=== PATIENT | female | born 1960 | race Caucasian/White ===

== ENCOUNTER 2017-02-22 15:37 | Inpatient (IN) | payer OTHER, MEDICARE ==
[~2017-02-22] VITALS: Ht 149.9 cm; Wt 50.8 kg
--- NOTE | 2017-02-22 15:44 | NUR ---
KATHARINE FROM HOME WHERE SHE LIVES WITH FAMILY FOR C/O MECHANICAL FALL WHILE AMBULATING IN HOUSE, FALLING ONTO CARPET. EMS DENIES LOC. PER EMS FAMILY REPORTS PT IS NORMALLY A&Ox4, BUT WAS REPEATING QUESTIONS WHEN THEY ARRIVED AND HAD CONSTRICTED PUPILS. GLUCOSE IN ROUTE: 320
--- NOTE | 2017-02-22 15:44 | NUR ---
PER EMS PER FAMILY, PT HAD A BAG OF NEIGHBORS MEDICATIONS AND THEY REPORT SHE MIGHT HAVE ACCIDENTLY TOOK SOME OF THEM. PT AWAKE AND ANSWERING QUESTIONS AT THIS TIME, NOT ORIENTED TO YEAR, IS A&OX3. SKIN WARM AND DRY. PUPILS BRISK AND REACTIVE.
--- NOTE | 2017-02-22 15:57 | NUR ---
FAMILY AT BEDSIDE AT THIS TIME. THEY REPORT PT HAD NEIGHBORS MEDICATION, RABEPRAZOLE 20MG IN HER MEDICATION BAG AND ARE UNSURE IF SHE TOOK ANY. THEY ALSO REPORT PT IS ACTING "SLOWER" THAN HER NORMAL. PT WAKES UP AND ANSWERS QUESTIONS, BUT IS NOT ORIENTED TO TIME. FAMILY UNSURE WHEN THIS CHANGE HAPPENED. PLANNING DIVISION SUPERINTENDENT [facility], EKG COMPLETED, PT HOOKED UP TO MONITOR IN ROOM. WILL CONT TO MONITOR WHILE AWAITING MD OSEI.
--- NOTE | 2017-02-22 16:16 | ED MVC/FALL/TRAUMA COMPLAINT ---
History of Present Illness General Chief Complaint: Fall Stated Complaint: BIBA FOR FALL, ALTERED MENTAL STATUS Source: family, old records, EMS Exam Limitations: unable to give history, not alert/orientated Allergies Coded Allergies: NO KNOWN ALLERGIES (04/07/12) Reconcile Medications Alprazolam 0.25 MG TABLET 1 TAB PO TIDPRN PRN ANXIETY (Reported) Atorvastatin Calcium 10 MG TABLET 1 TAB PO DAILY CHOLESTEROL (Reported) Baclofen 10 MG TABLET 1 TAB PO TID PRN CRAMPING (Reported) Citalopram Hydrobromide (Citalopram HBr) 20 MG TABLET 1.5 TAB PO DAILY MENTAL HEALTH (Reported) Diphenoxylate HCl/Atropine (Lomotil 2.5-0.025 MG Tablet) 2.5 MG-0.025 MG TABLET 1 TAB PO QHS INCONTINENCE (Reported) Gabapentin 400 MG CAPSULE 1 CAP PO 6XDAILY UNKNOWN (Reported) Insulin Aspart, Recombinant (Novolog Flexpen) (Unknown Strength) INSULN.PEN ( Unknown Dose) SC AD DM (Reported) Linagliptin (Tradjenta) 5 MG TABLET 1 TAB PO DAILY DM (Reported) Lisinopril (Unknown Strength) TABLET (Unknown Dose) PO DAILY BP (Reported) Oxybutynin Chloride 5 MG TABLET 1 TAB PO BID BLADDER (Reported) Tramadol HCl 50 MG TABLET 1 TAB PO BID PAIN (Reported) Triage Note: BIBA FROM HOME WHERE SHE LIVES WITH FAMILY FOR C/O MECHANICAL FALL WHILE AMBULATING IN HOUSE, FALLING ONTO CARPET. EMS DENIES LOC. PER EMS FAMILY REPORTS PT IS NORMALLY A&Ox4, BUT WAS REPEATING QUESTIONS WHEN THEY ARRIVED AND HAD CONSTRICTED PUPILS. GLUCOSE IN ROUTE: 320 Triage Nurses Notes Reviewed? yes Onset: Abrupt Duration: hour(s): (2-3), constant, continues in ED, getting worse Timing: single episode today Severity: mild, moderate Injuries/Fall Location: no injury Method of Injury: unknown Loss of Consciousness: unsure No Modifying Factors: none Associated Symptoms: confusion, slurred speech, trouble walking LMP (ages 10-50): post menopausal : No Patient currently breastfeeds: No HPI: 56-year-old female with past medical history of multiple sclerosis and diabetes brought in by a ambulance for evaluation of altered mental status. Patient's mother reports that last night she was alert and oriented 4 and at her baseline. She went over to a friend's house for the night and her mom saw her again at 2:30 this afternoon. At that point she was very lethargic she was confused and unsure where she was. MoM which she was repeatedly asking the same questions and was having difficulty walking. While mom was helping her walk into the house she did trip and fall. There is no head injury or loss of consciousness. Mom reports she has never seen the patient like this before. Patient currently is only responsive to physical stimuli and shouting. Patient was found to have medication that did not belong to her that is a proton pump inhibitor. Patient has a history of drug and alcohol abuse. (SHIVA MALONE PA-C) Vital Signs & Intake/Output Vital Signs & Intake/Output Vital Signs Date Time Temp Pulse Resp B/P B/P Pulse O2 O2 Flow FiO2 Mean Ox Delivery Rate 02/22 2309 Room Air 02/22 2232 98.0 77 18 120/70 94 Room Air 02/22 2137 97.4 74 15 152/83 97 Room Air 02/22 2044 74 15 150/72 97 Room Air 02/22 1915 72 16 105/57 98 Room Air 02/22 1827 97.0 80 20 109/65 94 Room Air 02/22 1803 97.0 86 133/78 02/22 1722 97.0 74 20 117/79 96 Room Air 02/22 1607 116/70 02/22 1551 96.2 84 14 118/74 94 Room Air ED Intake and Output 02/23 0000 02/22 1200 Intake Total Output Total Balance Patient 112 lb Weight Weight Reported by Patient Measurement Method Past History Travel History Traveled to [place] past 21 day No Medical History Any Pertinent Medical History? see below for history Neurological: multiple sclerosis Endocrine: diabetes Surgical History Surgical History: none Psychosocial History What is your primary language Portuguese Tobacco Use: Never used ETOH Use: denies use Illicit Drug Use: denies illicit drug use Family History Hx Contributory? Yes (SHIVA MALONE PA-C) Review of Systems Review of Systems Constitutional: Reports: no symptoms. Eyes: Reports: no symptoms. Ears, Nose, Throat, Mouth: Reports: no symptoms. Respiratory: Reports: no symptoms. Cardiovascular: Reports: no symptoms. Gastrointestinal/Abdominal: Reports: no symptoms. Genitourinary: Reports: no symptoms. Musculoskeletal: Reports: no symptoms. Skin: Reports: no symptoms. Neurological/Psychological: Reports: see HPI, cognitive dysfunction, confusion. All Other Systems: Reviewed and Negative (KIRA JOYNER,SHIVA) Physical Exam Physical Exam General Appearance: well developed/nourished, lethargic, obese Head: atraumatic, normal appearance Eyes: Bilateral: normal appearance, PERRL, EOMI, normal inspection. Ears, Nose, Throat, Mouth: hearing grossly normal, moist mucous membrane, Tympanic normal Neck: normal inspection, supple, full range of motion, normal alignment Respiratory: normal breath sounds, chest non-tender, no respiratory distress, lungs clear Cardiovascular: regular rate/rhythm, normal peripheral pulses Peripheral Pulses: 2+ dorsalis pedis (R), 2+ dorsalis pedis (L) Gastrointestinal: normal bowel sounds, soft, non-tender, no organomegaly Back: normal inspection Extremities: normal range of motion Neurologic/Psych: no motor/sensory deficits Skin: intact, normal color, warm/dry Comments: Patient is responsive to very loud verbal stimuli and painful stimuli only. She is very lethargic. No signs of respiratory distress vital signs are stable. Core Measures ACS in differential dx? Yes Severe Sepsis Present: No Septic Shock Present: No (KIRA JOYNER,SHIVA) Progress Differential Diagnosis: dka, hhs, arrythmia, electrolyte abnormailty, cva, acs, drug overdose Initial ED EKG: NSR, non-specific intraventricular condunction delay, extensive q-waves Prior EKG: unchanged (q waves) (KIRA JOYNER,SHIVA) Plan of Care: Orders Procedure Date/time Status Nothing by Mouth 02/23 B Active TROPONIN LEVEL 02/23 06 Active MAGNESIUM 02/23 06 Active BASIC ELECTROLYTES PLUS BUN&CR 02/23 06 Active EKG 02/23 06 Active Regular Diet 02/22 B Complete Teach/Educate 02/23 2308 Active Pain Treatment and Response 02/23 2308 Active Nutritional Intake, Monitor 02/23 2308 Active Isolation 02/23 2308 Active Patient Care Conference 02/23 2308 Active TRC EVALUATION (GEN) 02/22 2149 Active Pathway - chart 02/22 2149 Active House Staff 02/22 2149 Active TOTAL TRIODOTHYROXINE 02/23 2136 Complete OXYGEN SETUP (GEN) 02/22 2057 Active Saline Lock 02/22 2057 Active Admit to inpatient 02/22 2057 Active Patient Data 02/22 2057 Active Vital Signs 02/22 2057 Active Activity/Ambulation 02/22 2057 Active Code Status 02/22 2057 Active Add-on Test (ER Only) 02/23 2016 Active Add-on Test (ER Only) 02/22 1950 Active Add-on Test (ER Only) 02/22 1949 Active Add-on Test (ER Only) 02/22 194 Active AMMONIA 02/22 194 Complete FingerStick- Glucose 02/22 1723 Active TOTAL TRIODOTHYROXINE 02/22 1704 Complete PROLACTIN 02/22 1704 Complete PHOSPHORUS 02/22 1704 Complete SERUM OSMOLALITY 02/22 1704 Complete MAGNESIUM 02/22 1704 Complete FREE T4 02/22 1704 Complete ACETONE 02/22 1704 Complete Add-on Test (ER Only) 02/22 1644 Active Telemetry/[place] Management Professor 02/22 1632 Active URINE DRUG SCREEN FOR ER ONLY 02/22 1632 Complete URINALYSIS 02/22 1632 Complete TSH REFLEX 02/22 1632 Complete TROPONIN LEVEL 02/22 1632 Complete ETHANOL 02/22 1632 Complete COMPREHENSIVE METABOLIC PANEL 02/22 1632 Complete CBC WITHOUT DIFFERENTIAL 02/22 1632 Complete EKG 02/22 1551 Active Intake & Output 02/22 1546 Active VTE Mechanical Prophylaxis 02/22 UNK Active Precautions 02/22 UNK Active NIH Stroke Scale 02/22 UNK Active PHYSICIAN CONSULT 02/22 UNK Active Current Medications Sig/Hilda Start time Last Medication Dose Stop Time Status Admin Enoxaparin Sodium 40 MG DAILY 02/23 1000 AC (Lovenox) Insulin Human Regular 0 Q6 02/22 2359 AC 02/23 (NovoLIN R) 0009 Sodium Chloride 1,000 ML .[id number] 02/22 2200 AC 02/23 (Normal Saline 0.9%) 0104 Laboratory Tests 02/22/17 2136: Total T3 1.10 02/22/17 2017: Ammonia < 9 L 02/22/17 1734: Urine Opiates Screen < 100.00, Methadone Screen 72, Barbiturate Screen < 60, Ur Phencyclidine Scrn < 6.00, Amphetamines Screen < 100, U Benzodiazepines Scrn < 85, Urine Cocaine Screen > 1000 H, Urine Cannabis Screen 20.50, Urine Color YEL , Urine Clarity CLEAR, Urine pH 6.0, Ur Specific [place] 1.015, Urine Protein NEG, Urine Ketones NEG, Urine Nitrite NEG, Urine Bilirubin NEG, Urine Urobilinogen 0.2, Ur Leukocyte Esterase NEG, Ur Microscopic EXAM NOT REQUIRED, Urine Hemoglobin NEG, Urine Glucose >=1000 H 02/22/17 1704: Anion Gap 11, Estimated GFR > 60, BUN/Creatinine Ratio 38.8 H, Glucose 337 H, Serum Osmolality 294, Calcium 9.6, Phosphorus 5.1 H, Magnesium 1.4 L, Total Bilirubin 0.7, AST 21, ALT 35, Alkaline Phosphatase 129 H, Troponin I 0.02, Total Protein 6.4, Albumin 3.6, Globulin 2.8, Albumin/Globulin Ratio 1.3, Free T4 1.86 H, TSH &T3 &Free T4 Intrp 2.850, Prolactin 19.2 H, CBC w Diff NO MAN DIFF REQ, RBC 4.55, MCV 81.8, MCH 26.8 L, RDW 14.8 H, MPV 7.8, Gran % 75.2, Lymphocytes % 16.0 L, Monocytes % 5.7, Eosinophils % 2.7, Basophils % 0.4, Absolute Granulocytes 5.6, Absolute Lymphocytes 1.2, Absolute Monocytes 0.4, Absolute Eosinophils 0.2, Absolute Basophils 0, PUBS MCHC 32.7 L, Serum Alcohol < 10.0, Acetone Level NEGATIVE 02/22/17 1644: TSH &T3 &Free T4 Intrp Cancelled 7:45 PM: Patient reevaluated and still is only responsive to painful stimuli. Vitals are stable no respiratory distress. CT head does not show any acute findings. Blood sugar is elevated and there is a large amount of cocaine in her urine but otherwise workup so far has been within normal limits. Discussed case with Dr. Liu and patient will need to be admitted for further evaluation. Spoke with hospitalist at 7:47 PM. Additional labs will be added on to rule out DKA or HHS. 2 L of normal saline ordered. Will follow up on labs to determine placement either general med or ICU. 9:10 PM DKA and HHS have been ruled out. She'll be admitted to general med. Spoke with hospitalist and MOD. (KIRA JOYNER,SHIVA) Departure Departure Disposition: STILL A PATIENT Condition: Stable Clinical Impression Primary Impression: Altered mental status, unspecified Qualifiers: Altered mental status type: unspecified Qualified Code: R41.82 - Altered mental status, unspecified Secondary Impressions: Cocaine use, Hyperglycemia Referrals: OMI GILL APRN (PCP/Family) Departure Forms: Customer Survey General Discharge Information Admission Note Spoke With: RADAMES JUAREZ MD Documentation of Exam: Patient requires admission to general for further evaluation of altered mental status. She requireS MRI of the brain, physical therapy referral, neurology referral, serial labs, neuro checks, endocrine referral, hyperglycemia treatment , crisis/psych consult. (KIRA JOYNER,SHIVA) PA/SPRING SETTER Co-Sign Statement Statement: ED Attending supervision documentation- [X] I saw and evaluated the patient. I have also reviewed all the pertinent lab results and diagnostic results. I agree with the findings and the plan of care as documented in the PA's/SPRING SETTER's documentation. During my evaluation the patient open her eyes briefly and attempted to speak but her speech was slurred and incomprehensible. There is no focal neurologic deficits appreciable on physical examination but the exam is extremely limited due to the patient's lack of cooperation. Pupils are midpoint and reactive. The patient is not sweaty or flushed. I see no toxidrome at this point. There is likewise no indication of head trauma currently. The cause of this patient's altered mental status is somewhat unclear. Fortunately she is hemodynamically stable. [] I have reviewed the ED Record and agree with the PA's/SPRING SETTER's documentation. [] Additions or exceptions (if any) to the PAs/SPRING SETTER's note and plan are summarized below: [] (JABARI FREDERICK,ISREAL Ann)
--- NOTE | 2017-02-22 16:45 | NUR ---
PT TO CT AT THIS TIME.
--- NOTE | 2017-02-22 16:53 | NUR ---
PT BACK FROM CT AT THIS TIME. HOOKED BACK UP TO MONITORS IN ROOM.
[2017-02-22 17:15] LABS: ABSOLUTE BASOPHIL COUNT 0 /CUMM (0.0-0.2); ABSOLUTE EOSINOPHIL COUNT 0.2 /CUMM (0.0-0.7); ABSOLUTE GRANULOCYTE CT 5.6 /CUMM (1.4-6.5); ABSOLUTE LYMPH COUNT 1.2 /CUMM (1.2-3.4); ABSOLUTE MONOCYTE COUNT 0.4 /CUMM (0.10-0.60); BASOPHIL % 0.4 % (0.0-2.0); EOSINOPHIL % 2.7 % (0-5); GRANULOCYTE % 75.2 % (42.2-75.2); HEMATOCRIT 37.2 % (37-47); MEAN CORPUSCULAR HGB 26.8 PG (27.0-31.0); MEAN CORPUSCULAR HGB CONC 32.7 G/DL (33.0-37.0); MEAN CORPUSCULAR VOLUME 81.8 FL (81.0-99.0); MEAN PLATELET VOLUME 7.8 FL (7.4-10.4); PLATELET COUNT 337 /CUMM (130-400); RBC DISTRIBUTION WIDTH 14.8 % (11.5-14.5); RED BLOOD CELL CT 4.55 /CUMM (4.20-5.40); WHITE BLOOD CELL COUNT 7.5 /CUMM (4.8-10.8)
--- NOTE | 2017-02-22 17:21 | CT SCAN REPORT ---
EXAMINATION: CT HEAD WITHOUT CONTRAST CLINICAL INFORMATION: Altered mental status. COMPARISON: MRI brain 08/11/2013. Noncontrast head CT 05/14/2013. TECHNIQUE: Contiguous axial imaging was performed from the skull base to vertex without intravenous administration of contrast. DLP: 620 mGy-cm FINDINGS: There is no acute intracranial hemorrhage, mass or mass effect or abnormal extra-axial fluid collections. The ventricles are normal in size, without hydrocephalus. There are no focal areas of hypoattenuation in a vascular distribution to suggest acute transcortical ischemia. Areas of hypoattenuation within the periventricular and deep cortical white matter are nonspecific but could reflect sequela of mild chronic microvascular ischemia. Chronic appearing lacunar infarcts are present within the lateral basal ganglia as well as within the barnes radiata. No acute calvarial abnormality. The mastoid air cells and visualized portions of the paranasal sinuses are well-aerated. IMPRESSION: 1. No acute intracranial abnormality. However, please note that MRI of the brain is more sensitive in evaluating for acute ischemia. If there is a clinical concern for acute stroke, consider correlation with MRI of the brain. 2. Chronic appearing lacunar infarcts within the bilateral basal ganglia as well as within the barnes radiata. Subtle areas of hypoattenuation within the periventricular and deep cortical white matter are nonspecific but could reflect mild chronic microvascular ischemia.
--- NOTE | 2017-02-22 17:22 | RADIOLOGY REPORT ---
EXAMINATION: XR PORTABLE CHEST CLINICAL INFORMATION: Altered mental status. Shortness of breath. COMPARISON: None. TECHNIQUE: Portable frontal view of the chest was obtained. FINDINGS: The lungs are mildly hypoinflated, without focal airspace consolidation. No pleural effusions or pneumothoraces are identified. Cardiomediastinal contours are within normal limits. Soft tissues are unremarkable. No acute osseous abnormality is identified. IMPRESSION: No acute pulmonary abnormality.
--- NOTE | 2017-02-22 17:33 | NUR ---
CATHED FOR URINE USING STERILE TECHNIQUE AND URINE SENT TO LAB. PT REMAINS ON MONITOR, AND DROWSY. AWAKES TO VERBAL STIMULI, BUT FALLS BACK ASLEEP WHILE ANSWERING QUESTIONS. FAMILY REMAINS AT BEDSIDE. WILL CONT TO MONITOR.
[2017-02-22] MEDS ORDERED: ATORVASTATIN CA10 M1 PO (17:41)
[2017-02-22] MEDS ORDERED: GABAPENTIN400 M2 PO (17:41)
[2017-02-22] MEDS ORDERED: OXYBUTYNIN CHLOR5 M2 PO (17:42)
[2017-02-22] MEDS ORDERED: TRADJENTA5 M1 PO (17:43)
[2017-02-22] MEDS ORDERED: LISINOPRIL10 M1 PO (17:43)
[2017-02-22] MEDS ORDERED: ALPRAZOLAM0.25 M1 PO (17:44)
[2017-02-22] MEDS ORDERED: CITALOPRAM HBR20 MG PO (17:44)
[2017-02-22] MEDS ORDERED: BACLOFEN10 M1 PO (17:44)
[2017-02-22] MEDS ORDERED: LOMOTIL 2.5-0.1 EACH PO (17:45)
[2017-02-22] MEDS ORDERED: NOVOLOG FL100 UNIT/1 SC (17:45)
[2017-02-22] MEDS ORDERED: TRAMADOL HCL50 M1 PO (17:45)
--- NOTE | 2017-02-22 18:36 | NUR ---
PT SLEEPING AT THIS TIME, ARROUSES TO VERBAL STIMULI. FAMILY REMAINS AT BEDSIDE, PT REMAINS ON MONITORS IN ROOM. RESP EVEN AND NONLABORED, EQUAL RISE AND FALL OF THE CHEST. VSS. WILL CONT TO MONITOR.
--- NOTE | 2017-02-22 19:18 | NUR ---
PT RESTING IN BED AT THIS TIME, AWAKES TO VERBAL STIMULI. PT REMAINS ON MONITOR WILL CONT TO MONITOR. SKIN WARM AND DRY. AIRWAY IN TACT. VSS. WILL CONT TO MONITOR.
--- NOTE | 2017-02-22 20:22 | NUR ---
IV EST #20 IN [facility]. AMMONIA OBTAINED AND SENT TO LAB. NS INFUSING PER EMAR. HOUSE STAFF AT BEDSIDE FOR PT EVALUATION.
--- NOTE | 2017-02-22 20:46 | NUR ---
PT SLEEPING IN BED AT THIS TIME, RESPIRATIONS EVEN AND NONLABOERD. IS SNORING OCCASIONALLY, 02 SATS MAINTAINING. AWAKES TO VERBAL STIMULI. REMAINS ON MONITORS IN ROOM. IVF RUNNING AT THIS TIME.
--- NOTE | 2017-02-22 21:17 | History & Physical ---
[place] [place]: General Information and [facility] MD Statement: I have seen and personally examined YANELY,DECEMBER and documented this H&P. The patient is a 56 year old F who presented with a patient stated chief complaint of altered mental status. Source of Information: family, old records Exam Limitations: unable to give history, not alert/orientated, clinical condition History of Present Illness: Ms. 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 Patient is very lethargic and nonverbal and unable to provide any history when examined in the ED. Therefore the history is obtained over the phone from patient's mother who she lives with. According to her mother , patient was in her usual state of her health when she left the house to go to her friend's house on the night prior to her current presentation. When she came back home at 2:30 PM the following day, she was incoherent, not able to answer questions and "staring into space". She was unsteady on her feet and could barely walk. She had a fall but there was no head trauma or loss of consciousness. Her mother reports that the friends that she was hanging out with that night have the reputation of being crack cocaine users. She states that her daughter is an alcoholic and smokes marijuana but is unaware of other illicit drug use. She notes that her daughter has never had a similar episode before, but recalls that 3 weeks ago, patient came back home looking like she was "dying" with a "drawn" face and "wide stare" after hanging out with her friends. Patient is currently on disability and spends most of her days in bed as she is depressed. Patient was diagnosed with multiple sclerosis in August 2013. She had been following up with neurologist Dr. Sergio Avila but it is unclear if she still follows up with him. Her mother reports that patient had not been following up with any doctors and had stopped taking her medications for a year up until three weeks ago when she saw her PCP again with her mom's insistence. Allergies/Medications Allergies: Coded Allergies: NO KNOWN ALLERGIES (04/07/12) Home Med list Alprazolam 0.25 MG TABLET 1 TAB PO TIDPRN PRN ANXIETY (Reported) Atorvastatin Calcium 10 MG TABLET 1 TAB PO DAILY CHOLESTEROL (Reported) Baclofen 10 MG TABLET 1 TAB PO TID PRN CRAMPING (Reported) Citalopram Hydrobromide (Citalopram HBr) 20 MG TABLET 1.5 TAB PO DAILY MENTAL HEALTH (Reported) Diphenoxylate HCl/Atropine (Lomotil 2.5-0.025 MG Tablet) 2.5 MG-0.025 MG TABLET 1 TAB PO QHS INCONTINENCE (Reported) Gabapentin 400 MG CAPSULE 1 CAP PO 6XDAILY UNKNOWN (Reported) Insulin Aspart, Recombinant (Novolog Flexpen) (Unknown Strength) INSULN.PEN ( Unknown Dose) SC AD DM (Reported) Linagliptin (Tradjenta) 5 MG TABLET 1 TAB PO DAILY DM (Reported) Lisinopril (Unknown Strength) TABLET (Unknown Dose) PO DAILY BP (Reported) Oxybutynin Chloride 5 MG TABLET 1 TAB PO BID BLADDER (Reported) Tramadol HCl 50 MG TABLET 1 TAB PO BID PAIN (Reported) Past History Travel History Traveled to [facility] past 21 day No Medical History Neurological: multiple sclerosis, peripheral neuropathy Cardiovascular: hypertension, hyperlipidemia Psychiatric: anxiety, depression Endocrine: diabetes Surgical History Surgical History: none Past Family/Social History Psychosocial History Where do you live? Home Who Do You Live With? parent Services at Home: None Primary Language: Armenian ETOH Use: alcoholic Illicit Drug Use: marijuana Functional Ability ADLs Independent: dressing, eating, toileting, bathing. Ambulation: independent IADLs Independent: shopping, housework, finances, food prep, telephone, transportation , medication admin. Employment History Employment Disability Review of Systems Review of Systems Constitutional: Reports: see HPI (unable to obtain ROS ). Exam & Diagnostic Data Last 24 Hrs of Vital Signs/I&O Vital Signs Date Time Temp Pulse Resp B/P B/P Pulse O2 O2 Flow FiO2 Mean Ox Delivery Rate 02/22 2309 Room Air 02/22 2232 98.0 77 18 120/70 94 Room Air 02/22 2137 97.4 74 15 152/83 97 Room Air 02/22 2044 74 15 150/72 97 Room Air 02/22 1915 72 16 105/57 98 Room Air 02/22 1827 97.0 80 20 109/65 94 Room Air 02/22 1803 97.0 86 133/78 02/22 1722 97.0 74 20 117/79 96 Room Air 02/22 1607 116/70 02/22 1551 96.2 84 14 118/74 94 Room Air Intake & Output 02/23 0800 02/23 0000 02/22 1600 Intake Total 100 Output Total Balance 100 Intake, IV 100 Intake, Oral 0 Patient 50.802 kg 68.039 kg Weight Weight Reported by Patient Estimated Measurement Method Physical Exam General Appearance Lethargic, Nonverbal, Follows Commands Skin No Rashes HEENT Atraumatic, PERRLA, Dry Mucous Membranes Neck Supple Cardiovascular Regular Rate, Normal S1, Normal S2, No Murmurs, Gallops, Rubs Lungs Clear to Auscultation Abdomen Soft, No Tenderness, Positive Bowel Sounds Neurological Strength at 5/5 X4 Ext, Cranial Nerves Grossly Intact Extremities No Clubbing, No Cyanosis, No Edema Last 24 Hrs of Labs/Carlos: Laboratory Tests 02/22/176: Total T3 1.10 02/22/17 2017: Ammonia < 9 L 02/22/17 1734: Urine Opiates Screen < 100.00, Methadone Screen 72, Barbiturate Screen < 60, Ur Phencyclidine Scrn < 6.00, Amphetamines Screen < 100, U Benzodiazepines Scrn < 85, Urine Cocaine Screen > 1000 H, Urine Cannabis Screen 20.50, Urine Color YEL , Urine Clarity CLEAR, Urine pH 6.0, Ur Specific [place] 1.015, Urine Protein NEG, Urine Ketones NEG, Urine Nitrite NEG, Urine Bilirubin NEG, Urine Urobilinogen 0.2, Ur Leukocyte Esterase NEG, Ur Microscopic EXAM NOT REQUIRED, Urine Hemoglobin NEG, Urine Glucose >=1000 H 02/22/17 1704: Anion Gap 11, Estimated GFR > 60, BUN/Creatinine Ratio 38.8 H, Glucose 337 H, Serum Osmolality 294, Calcium 9.6, Phosphorus 5.1 H, Magnesium 1.4 L, Total Bilirubin 0.7, AST 21, ALT 35, Alkaline Phosphatase 129 H, Troponin I 0.02, Total Protein 6.4, Albumin 3.6, Globulin 2.8, Albumin/Globulin Ratio 1.3, Free T4 1.86 H, TSH &T3 &Free T4 Intrp 2.850, Prolactin 19.2 H, CBC w Diff NO MAN DIFF REQ, RBC 4.55, MCV 81.8, MCH 26.8 L, RDW 14.8 H, MPV 7.8, Gran % 75.2, Lymphocytes % 16.0 L, Monocytes % 5.7, Eosinophils % 2.7, Basophils % 0.4, Absolute Granulocytes 5.6, Absolute Lymphocytes 1.2, Absolute Monocytes 0.4, Absolute Eosinophils 0.2, Absolute Basophils 0, PUBS MCHC 32.7 L, Serum Alcohol < 10.0, Acetone Level NEGATIVE 02/22/17 1644: TSH &T3 &Free T4 Intrp Cancelled Diagnostic Data EKG Results Normal sinus rhythm HR 82 T wave inversions QTc [address] HEAD WITHOUT CONTRAST: 1. No acute intracranial abnormality. However, please note that MRI of the brain is more sensitive in evaluating for acute ischemia. If there is a clinical concern for acute stroke, consider correlation with MRI of the brain. 2. Chronic appearing lacunar infarcts within the bilateral basal ganglia as well as within the barnes radiata. Subtle areas of hypoattenuation within the periventricular and deep cortical white matter are nonspecific but could reflect mild chronic microvascular ischemia. Assessment/Plan Assessment: Ms. 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 #Altered mental status: Etiology is toxic encephalopathy secondary to cocaine abuse with urine toxicology positive for cocaine vs. post-ictal state, with mild elevation in prolactin to 19.2. Although patIent has a history of uncontrolled diabetes with elevated blood sugars (344) on admission, labs are not consistent with DKA or HHS given bicarbonate, anion gap and serum osmolality WNL. Although patient has hyponatremia with Na 129, this likely represents pseudohyponatremia secondary to hyperglycemia given normal osmolality. There is no evidence for other causes of acute altered mental status including hepatic encephalopathy given ammonia <9 and sepsis or RN SECURITY infections given patient is afebrile and without leukocytosis. CT Head with no acute infarcts but chronic lacunar infarcts as well as cortical changes consistent with mild chronic microvascular ischemia. * Admit to General Medicine. * Neurology consulted. Appreciate their recs. * EEG ordered to evaluate for seizures. * Aspiration and fall precautions. * Neuro-checks Q6H. * Keep patient NPO including meds. * CIWA protocol to monitor for signs/symptoms of withdrawal. * Monitor respiratory status. * Avoid sedating medications. * Gentle hydration with NS @ 75 cc/hr. * TRC and nebs. #Cocaine abuse: Troponin on admission negative. EKG with T wave inversions but no ST-T wave elevations or depressions. * Repeat EKG and troponin in the morning due to concern for myocardial ischemia in the setting of cocaine use. #Hypomagnesemia: Mg 1.4 on admission. * Administer 1 mg of IV Mg x2. * Repeat Mg in the morning and replete as needed to keep Mg >2. #Insulin-dependent T2DM: Sugars elevated to 344 on initial presentation. On linagliptin and Novolog as outpatient. * Hold oral hypoglycemic agents while inpatient. * Accu-checks Q6H and NPO sliding scale Novolin. * Check HbA1c. Diet: NPO DVT PPx: Lovenox and ALPs CODE: FULL As Ranked By This Provider Problem List: 1. Altered mental status 2. Hypomagnesemia 3. Insulin dependent type 2 diabetes mellitus 4. Cocaine abuse Core Measures/Miscellaneous Acute Coronary Syndrome ACS Diagnosis: No Cerebrovascular Accident CVA/TIA Diagnosis: No Congestive Heart Failure CHF Diagnosis: No VTE (View Protocol) VTE Risk Factors: Acute medical illness, Age > 40 No [facility] VTE prophylaxis d/t: No contraindications No VTE Pharm Prophylaxis d/t: No contraindications VTE Diagnosis: No VTE Type: NONE VTE Confirmed by (Test): NONE Sepsis (View Protocol) Severe Sepsis Present: No Septic Shock Septic Shock Present: No Miscellaneous Documentation Attending [facility] Primary Care Physician: OMI GILL APRN Patient sees these Specialists Neurologist Sergio Avila MD Level of Patient Care: General Medicine KALPANA ADRIAN 02/22/17 2213: Resident Review Statement Resident Statement: examined this patient, discussed with digital marketing intern, agreed with digital marketing intern, reviewed images, amended to note Other Findings: She is a 57 years old lady with past medical history of hypertension hyperlipidemia diabetes mellitus, neuropathy anxiety depression MIs diagnosed in 2012 who was brought in to [facility] after being noted to be almost had and also experiencing a fall. The patient lives with the mother who reports that yesterday she went to visit friends who are known cocaine users and upon returning home she was noted to be incoherent unstable and not fully aware of her surroundings. Mother volunteers that the patient is a regular user of marijuana but cannot confirm use of cocaine or other IV drugs of abuse. She denies witnessing any seizures. On arrival the patient was afebrile 96.2 heart rate of 84 respiration of 14 blood pressure 118/74 and saturating 94% on room air Physical examination: Patient lying on the bed very drowsy waking up and going to sleep almost immediately almost instant snoring. Neurological: Patient understands is in [facility] but refused to answer other questions, pupils are normal size bilaterally and reacting to light, symmetrical face, normal power in bilateral upper and lower limbs not able to do sensory testing as the patient is not responding to detailed questions. Chest: Transmitted breath sounds bilaterally slightly reduced after clearing the throat no crackles or crepitations Heart: RRR, S1-S2 normal no murmurs Abdomen: Normal contour moving with respiration and no palpable mass Labs: H&H 12.2 and 37.2, low sodium 129,, glucose 337, negative acetone, magnesium 1.4 CT head: No acute intracranial abnormalities chronic appearing lacunar infarcts within bilateral basoganglia EKG: Sinus arrhythmia regular normal axis normal SC was changes T-wave inversions nonspecific Assessment and plan 56 years old with history of hypertension hyperlipidemia and diabetes mellitus neuropathy anxiety depression and MIs diagnosed in 2012 presenting after a period of incoherence altered mental status unstable gait with a fall without associated head injury. Patient visited with friends who are drug abusers and on presentation had significant cocaine in urine more than 1000, negative acetone slightly high sugar of 337. This patient altered mental status can be due to cocaine intoxication but we cannot rule out a post ictal face where the patient might have had a seizure. Altered mental status Drug overdose Hypomagnesemia Diabetes mellitus with high sugars Hypertension Admitted the patient to general medicine floor Keep the patient nothing by mouth while altered pending improvement of mental status Hold all oral medications, consider restarting tomorrow with neurological improvement Aspiration precautions, fall precautions Neurochecks every 6 Patient received 2 rounds of magnesium sulfate, review magnesium level a.m. and continue to correct To maintain level above 2 Patient is on nothing by mouth insulin sliding scale Gentle hydration with normal saline 75 mL per hour Given cocaine and risk of inducing NM patient will get repeat troponin and EKG a.m. I am neuro consult possible candidate for EEG to rule out seizures Patient is full code Alps and Lovenox for DVT prophylaxis LARRY FREDERICK, [facility] 02/22/17 4726: Attending MD Review Statement Attending Statement Attending MD Statement: examined this patient, discuss w/resident/PA/PARTS COUNTER ASSOCIATE, agreed w/resident/PA/PARTS COUNTER ASSOCIATE Attending Assessment/Plan: 56 yo F with h/o HTN, HLD, insulin dependent diabetes with neuropathy, multiple sclerosis (diagnosed 2012), anxiety, depression, is brought in by family for evaluation of altered mental status. History was obtained from mother. Patient was last seen normal the evening prior. Overnight, she visited her friends who do drugs (cracked house). She then came back home around 2.30 pm when mother found her to be lethargic, incoherent and wobbly on her feet, falling without head strike. Unclear if she had a seizure or syncopal episode. Patient regularly uses marijuana and drinks alcohol. She has been noncompliant with her medications. Neuro: Dr. Avila. VSS. On our evaluation, patient was arousable to verbal stimuli but very lethargic, confused would fall back asleep, oriented to place but not person or time. Dry mucous membranes, pupils RTL. Chest b/l clear anteriorly, Heart S1S2 regular, Abd soft, NT. Neuro grossly nonfocal exam. Labs: Na 129 (corrected sodium is 135), BUN 31, bicarb normal, glucose 337, S. Osm 294, Mag 1.4, LFT normal, alk phos 129, ammonia <9, trop neg, TSH normal, Free T4 1.86, prolactin 19.2. UA clear with glucose >1000, Utox positive for cocaine and cannabis. Acetone neg. Alcohol <10. CXR neg. CT head: no acute infarcts, chronic lacunar infarcts+. EKG: SR, TWI V5-6, nonspecific ST-T changes. 1. Altered mental status 2/2 drug use. ?Post ictal state, seizure is a possibility. Uncontrolled diabetes, but no evidence of HHS or DKA, hypercarbia, hypoxia. Hypomagnesemia and mild hyponatremic (pseudo 2/2 hyperglycemia), no evidence of liver failure, stroke, head injury, sepsis or RN SECURITY infections. GM admit, neurochecks, CIWA protocol, aspiration/ fall precautions, NPO, IV fluids, replete electrolytes, check HbA1c, avoid sedative meds. Monitor respiratory status, able to maintain airway at this point. Manage diabetes with insulin NPO SS. Neuro consult in AM. Obtain EEG. Serial EKG and troponin to rule out ACS, given recent cocaine abuse. DVT ppx Lovenox. Full code. Patient's mother is aware of hospitalization. Patient's home meds are on hold , until she is fully awake then please resume.
--- NOTE | 2017-02-22 21:28 | NUR ---
Emergency Dept [facility] Admit Note: To be admitted to [facility] by DR JUAREZ with AMS as the diagnosis, to [facility] location. Nursing Instantizer Operator and admitting notified 02/22/17 at 2100 PT WILL GO TO ROOM 216-2
--- NOTE | 2017-02-22 21:28 | Admission Certification ---
Admission Certification Certification Statement - As attending physician, I certify that at the time of - admission, based on clinical presentation, severity of - symptoms, need for further diagnostic testing and - therapeutic interventions, and risk of adverse outcomes - without in-hospital treatment, in my clinical assessment, - this patient requires an acute hospital stay for a minimum - of two nights or longer. I have also considered psychsocial - factors such as support system, advanced age, financial - issues, cognitive issues, and failed out-patient treatments, - past re-admission history, safety of patient, and lack of - compliance as applicable. Specific rationale supporting this admission is: Altered mental status
--- NOTE | 2017-02-22 21:35 | NUR ---
PER LAB, NOT ENOUGH BLOOD TO RUN TESTING AND NEED ADDITIONAL SST. SST DRAWN BY AIRPORT SHUTTLE DRIVER AND SENT TO LAB. MAG SULFATE BAG 1/2 STARTED PER ORDER.
--- NOTE | 2017-02-22 21:53 | NUR ---
REPORT GIVEN TO SAM BOGGS AND ANSWERED ALL QUESTIONS. TRANSPORT ARRANGED.
--- NOTE | 2017-02-22 21:56 | NUR ---
PT TRANSPORTED AT THIS TIME VIA STRETCHER WITH ALL BELONGINGS AND CARE RELINQUISHED.
[2017-02-22 22:32] VITALS: BP 120/70
--- NOTE | 2017-02-22 23:46 | NUR ---
NURSE NOTE: PT ARRIVED TO FLOOR AT 2200, REPORT RECIEVED FROM RAMONA IN ED. PT HAS FLUIDS RUNNING. PT DROWSY AT TIME OF ARRIVAL, BUT ORIENTED TO PERSON, PLACE, AND YEAR. VSS. FALL PX IN PLACE. CALL BARBOZA IN REACH, BED LOW.
--- NOTE | 2017-02-23 06:42 | NUR ---
NURSE NOTE: PT BLOOD SUAGR 72, CNC CUTTING OPERATOR MADE AWARE.
[2017-02-23 06:44] VITALS: BP 113/72
--- NOTE | 2017-02-23 09:53 | PN- Housestaff ---
SHANIQUE FREDERICK,[facility] 02/23/17 0952: Subjective Follow-up For: Altered mental status Subjective: Patient was seen and examined this morning, alert oriented 3. Patient reported pain in the right thigh but denied weakness. Chest pain, abdominal pain, nausea or vomiting. Reported feeling thirsty. Patient passed Bedside swallow eval, diet was started. Signs are stable, patient is afebrile. Review of Systems Constitutional: Reports: see HPI. Objective Last 24 Hrs of Vital Signs/I&O Vital Signs Date Time Temp Pulse Resp B/P B/P Pulse O2 O2 Flow FiO2 Mean Ox Delivery Rate 02/23 1003 Room Air Room Air 02/23 0644 98.1 79 18 113/72 98 Room Air 02/22 2309 Room Air 02/22 2232 98.0 77 18 120/70 94 Room Air 02/22 2137 97.4 74 15 152/83 97 Room Air 02/22 2044 74 15 150/72 97 Room Air 02/22 1915 72 16 105/57 98 Room Air 02/22 1827 97.0 80 20 109/65 94 Room Air 02/22 1803 97.0 86 133/78 02/22 1722 97.0 74 20 117/79 96 Room Air 02/22 1607 116/70 02/22 1551 96.2 84 14 118/74 94 Room Air Intake & Output 02/23 1600 02/23 0800 02/23 0000 Intake Total 600 100 Output Total Balance 600 100 Intake, IV 600 100 Intake, Oral 0 0 Patient 50.802 kg Weight Weight Reported by Patient Measurement Method Physical Exam General Appearance: Alert, Oriented X3, Cooperative, No Acute Distress Skin: No Rashes, No Breakdown, No Significant Lesion HEENT: Atraumatic, PERRLA, EOMI, Mucous Membr. moist/pink Neck: Supple, No JVD Cardiovascular: Regular Rate, Normal S1, Normal S2, No Murmurs Lungs: Clear to Auscultation, Normal Air Movement Abdomen: Normal Bowel Sounds, Soft, No Tenderness, No Hepatospenomegaly, No Masses Neurological: Normal Gait, Normal Speech, Strength at 5/5 X4 Ext, Normal Tone, Sensation Intact, Cranial Nerves 3-12 NL, Reflexes 2+ Extremities: No Clubbing, No Cyanosis, No Edema, Normal Pulses, No Tenderness/ Swelling Assessment/Plan Assessment: Ms. 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 #Altered mental status: Etiology is toxic encephalopathy secondary to cocaine overdose with urine toxicology positive for cocaine vs. post-ictal state, with mild elevation in prolactin to 19.2. Although patent has a history of uncontrolled diabetes with elevated blood sugars (344) on admission, labs are not consistent with DKA or HHS given bicarbonate, anion gap and serum osmolality WNL. Although patient has hyponatremia with Na 129, this likely represents pseudohyponatremia secondary to hypeorglycemia given normal osmolality. There is no evidence for other causes of acute altered mental status including hepatic encephalopathy given ammonia <9 and sepsis or WAREHOUSE COORDINATOR infections given patient is afebrile and without leukocytosis. CT Head with no acute infarcts but chronic lacunar infarcts as well as cortical changes consistent withmild chronic microvascular ischemia. * Neurology consultation was obtained, recommendation for EEG * Neuro-checks Q6H * Patient passed bedside swallow eval, diet was started * Avoid sedating medications * DC IV fluids patient to tolerate fluids well * TRC and nebs #Cocaine overdose: Troponin on admission negative. EKG with T wave inversions but no ST-T wave elevations or depressions. * Troponin negative, EKG no acute changes #Hypomagnesemia: Mg 1.4 on admission. * Administer 1 mg of IV Mg x2. * Magnesium 2 #Insulin-dependent T2DM: Sugars elevated to 344 on initial presentation. On linagliptin and Novolog as outpatient. * NovoLog sliding scale 3 times a day before meals * Accu-checks 3 times a day before meals * Check HbA1c pending Diet:CC2 DVT PPx: Lovenox and ALPs CODE: FULL Problem List: 1. Altered mental status 2. Cocaine use 3. Altered mental status, unspecified Pain Ratin Pain Location: None Pain Goal: Pain 4 or less Pain Plan: Mild pain pathway Tomorrow's Labs & Rationales: ANITHA CARLISLE MD,VAZQUEZ 02/23/17 1320: Attending MD Review Statement Attending Statement Attending MD Statement: examined this patient, discuss w/resident/PA/CLINIC MGR, agreed w/resident/PA/CLINIC MGR, reviewed EMR data (avail), discussed with nursing, discussed with case mgmt, reviewed images, amended to note Attending Assessment/Plan: 56-year-old female with past medical history significant for hypertension, hyperlipidemia, MS, IDDM with neuropathy, anxiety, depression is being admitted to the floor for altered mental status. Per records shows that patient did drugs last night with the friends and her U tox is positive for cocaine. Patient was found lethargic, and coherent and wobbly on her feet and falling without head trauma. Of note it is reported that patient has been noncompliant with her medications. Patient follows up with Dr. Avila. CT and chest xray with no acute findings. Patient this morning was found to be obtunded/sleeping and not responding to voice. She was not found to be in any DKA, hypoxia or hypercarbia, or electrolyte imbalance, not in any liver failure or stroke, head injury or underlying infection. Patient has been admitted for neuro checks, CIWA protocol aspiration/fall precautions. Neurology consult has also been placed. We'll closely monitor her vitals and closely follow up the patient for any change in her physical or mental status.
--- NOTE | 2017-02-23 14:28 | Cons- Neurology ---
General Information and HPI Consulting Request Date of Consult: 02/23/17 Requested By: LARRY FREDERICK,CALALAKSHMI History of Present Illness: 56-year-old female who yesterday had an unusual event She reports that she was at her friend's home watching television; on her return to her home which was close by and she believes that she fell through the doorway. She believes she hit her head. She vaguely recalls the arrival of the police and then the EMS She also believes that she was confused. She was brought to [facility] emergency room where she was again described as being confused. There was no history of convulsive activity. She believes that when she was examined she was thought to awaken. She denies any drug use or alcohol abuse. Medical records indicate that family believes she does abuse alcohol and not her friend has an amputation of cocaine use. At present she feels well and does not complain of headache Allergies/Medications Allergies: Coded Allergies: NO KNOWN ALLERGIES (04/07/12) Home Med List: Alprazolam 0.25 MG TABLET 1 TAB PO TIDPRN PRN ANXIETY (Reported) Atorvastatin Calcium 10 MG TABLET 1 TAB PO DAILY CHOLESTEROL (Reported) Baclofen 10 MG TABLET 1 TAB PO TID PRN CRAMPING (Reported) Citalopram Hydrobromide (Citalopram HBr) 20 MG TABLET 1.5 TAB PO DAILY MENTAL HEALTH (Reported) Diphenoxylate HCl/Atropine (Lomotil 2.5-0.025 MG Tablet) 2.5 MG-0.025 MG TABLET 1 TAB PO QHS INCONTINENCE (Reported) Gabapentin 400 MG CAPSULE 1 CAP PO 6XDAILY UNKNOWN (Reported) Insulin Aspart, Recombinant (Novolog Flexpen) (Unknown Strength) INSULN.PEN ( Unknown Dose) SC AD DM (Reported) Linagliptin (Tradjenta) 5 MG TABLET 1 TAB PO DAILY DM (Reported) Lisinopril (Unknown Strength) TABLET (Unknown Dose) PO DAILY BP (Reported) Oxybutynin Chloride 5 MG TABLET 1 TAB PO BID BLADDER (Reported) Tramadol HCl 50 MG TABLET 1 TAB PO BID PAIN (Reported) Current Medications: Current Medications Sig/Hilda Start time Last Medication Dose Route Stop Time Status Admin Dextrose/Sodium 1,000 ML Q13H 02/23 0645 DC 02/23 Chloride IV 0648 Enoxaparin Sodium 40 MG DAILY 02/23 1000 02/23 RI 0850 Insulin Human Regular 1 UNITS .STK-MED ONE 02/23 0008 DC IV 02/23 0009 Insulin Human Regular 0 Q6 02/22 2359 02/23 RI 1153 Magnesium Sulfate 1 GM Q2H 02/22 2045 IA 02/22 Dextrose/Water 100 ML IV 02/23 0044 2300 Sodium Chloride 1,000 ML .[id number] 02/22 2200 IA 02/23 IV 0104 Sodium Chloride 1,000 ML BOLUS ONE 02/22 2000 DC 02/22 IV 02/22 Review of Systems Review of Systems: Denies headache, diplopia or vertigo, chest pains, nausea or vomiting She does have shortness of breath on exertion and occasional incontinence He has occasional swelling in the lower extremities She has difficulty walking and walks with a cane Is been no recent fever; weight stable Other systems reviewed are negative, Past History Travel History Traveled to [place] past 21 day No Medical History Neurological: multiple sclerosis, peripheral neuropathy Cardiovascular: hypertension, hyperlipidemia Psychiatric: anxiety, depression Endocrine: diabetes Surgical History Surgical History: 1 Psychosocial History Where Do You Live? Home Who Do You Live With? parent Services at Home: None Primary Language: Occitan Smoking Status: Current Everyday Smoker ETOH Use: alcoholic Illicit Drug Use: marijuana Functional Ability ADLs Independent: dressing, eating, toileting, bathing. Ambulation: independent IADLs Independent: shopping, housework, finances, food prep, telephone, transportation , medication admin. Employment History Employment: Disability Exam & Diagnostic Data Vital Signs and I&O Vital Signs Date Time Temp Pulse Resp B/P B/P Pulse O2 O2 Flow FiO2 Mean Ox Delivery Rate 02/23 1003 Room Air Room Air 02/23 0644 98.1 79 18 113/72 98 Room Air 02/22 2309 Room Air 02/22 2232 98.0 77 18 120/70 94 Room Air 02/22 2137 97.4 74 15 152/83 97 Room Air 02/22 2044 74 15 150/72 97 Room Air 02/22 1915 72 16 105/57 98 Room Air 02/22 1827 97.0 80 20 109/65 94 Room Air 02/22 1803 97.0 86 133/78 02/22 1722 97.0 74 20 117/79 96 Room Air 06/17 1607 116/70 02/22 1551 96.2 84 14 118/74 94 Room Air Intake & Output 02/23 1600 02/23 0800 02/23 0000 Intake Total 600 100 Output Total Balance 600 100 Intake, IV 600 100 Intake, Oral 0 0 Patient 112 lb Weight Weight Reported by Patient Measurement Method Alert and oriented No distress Language functions fund of knowledge attention span concentration intact Heart sounds normal no carotid bruits distal pulses intact Extraocular movements full pupils equal reactive fundi benign visual menendez intact no facial weakness or facial sensory loss movements of the palate tongue and shoulders intact hearing grossly intact Normal tone and strength upper and lower extremities Sensory examination intact to light touch bilaterally Deep tendon reflexes hypoactive throughout plantar is upgoing coord functions show intact finger-nose maneuver Her gait was slow and mildly unsteady and she uses a cane Last 48 Hours of Lab Results: Laboratory Tests 02/23 Chemistry Sodium (137 - 145 mmol/L) 138 Potassium (3.5 - 5.1 mmol/L) 3.8 Chloride (98 - 107 mmol/L) 103 Carbon Dioxide (22 - 30 mmol/L) 28 Anion Gap (5 - 16) 7 BUN (7 - 17 mg/dL) 21 H Creatinine (0.5 - 1.0 mg/dL) 0.6 Estimated GFR (>60 ml/min) > 60 BUN/Creatinine Ratio (7 - 25 %) 35.0 H Magnesium (1.6 - 2.3 mg/dL) 2.0 Ammonia (9 - 30 umol/L) < 9 L Troponin I (< 0.11 ng/ml) 0.02 Total T3 (0.97 - 1.69 ng/mL) 1.10 02/22 1734 Toxicology Urine Opiates Screen (>2000 NG/ML) < 100.00 Methadone Screen (>300 NG/ML) 72 Barbiturate Screen (>200 NG/ML) < 60 Ur Phencyclidine Scrn (>25 NG/ML) < 6.00 Amphetamines Screen (>1000 NG/ML) < 100 U Benzodiazepines Scrn (>200 NG/ML) < 85 Urine Cocaine Screen (>300 NG/ML) > 1000 H Urine Cannabis Screen (>50 NG/ML) 20.50 Urines Urine Color (YEL,AMB,STR) YEL Urine Clarity (CLEAR) CLEAR Urine pH (5.0 - 8.0) 6.0 Ur Specific [place] (1.001 - 1.035) 1.015 Urine Protein (NEG,<30 MG/DL) NEG Urine Ketones (NEG) NEG Urine Nitrite (NEG) NEG Urine Bilirubin (NEG) NEG Urine Urobilinogen (0.1 - 1.0 EU/dl) 0.2 Ur Leukocyte Esterase (NEG) NEG Ur Microscopic EXAM NOT REQUIRED Urine Hemoglobin (NEG) NEG Urine Glucose (N MG/DL) >=1000 H 02/22 02/22 1704 1644 Chemistry Sodium (137 - 145 mmol/L) 129 L Potassium (3.5 - 5.1 mmol/L) 4.6 Chloride (98 - 107 mmol/L) 94 L Carbon Dioxide (22 - 30 mmol/L) 24 Anion Gap (5 - 16) 11 BUN (7 - 17 mg/dL) 31 H Creatinine (0.5 - 1.0 mg/dL) 0.8 Estimated GFR (>60 ml/min) > 60 BUN/Creatinine Ratio (7 - 25 %) 38.8 H Glucose (65 - 99 mg/dL) 337 H Hemoglobin A1c (4.2 - 5.8 %) Pending Serum Osmolality (285 - 295 MOSM/KG) 294 Calcium (8.4 - 10.2 mg/dL) 9.6 Phosphorus (2.5 - 4.5 mg/dL) 5.1 H Magnesium (1.6 - 2.3 mg/dL) 1.4 L Total Bilirubin (0.2 - 1.3 mg/dL) 0.7 AST (14 - 36 U/L) 21 ALT (9 - 52 U/L) 35 Alkaline Phosphatase (<127 U/L) 129 H Troponin I (< 0.11 ng/ml) 0.02 Total Protein (6.3 - 8.2 g/dL) 6.4 Albumin (3.5 - 5.0 g/dL) 3.6 Globulin (1.9 - 4.2 gm/dL) 2.8 Albumin/Globulin Ratio (1.1 - 2.2 %) 1.3 Free T4 (0.64 - 1.79 ng/dL) 1.86 H TSH &T3 &Free T4 Intrp (0.270 - 4.20 uIU/mL) 2.850 Cancelled Prolactin (3.0 - 18.6 ng/mL) 19.2 H Hematology CBC w Diff NO MAN DIFF REQ WBC (4.8 - 10.8 /CUMM) 7.5 RBC (4.20 - 5.40 /CUMM) 4.55 Hgb (12.0 - 16.0 G/DL) 12.2 Hct (37 - 47 %) 37.2 MCV (81.0 - 99.0 FL) 81.8 MCH (27.0 - 31.0 PG) 26.8 L RDW (11.5 - 14.5 %) 14.8 H Plt Count (130 - 400 /CUMM) 337 MPV (7.4 - 10.4 FL) 7.8 Gran % (42.2 - 75.2 %) 75.2 Lymphocytes % (20.5 - 51.1 %) 16.0 L Monocytes % (1.7 - 9.3 %) 5.7 Eosinophils % (0 - 5 %) 2.7 Basophils % (0.0 - 2.0 %) 0.4 Absolute Granulocytes (1.4 - 6.5 /CUMM) 5.6 Absolute Lymphocytes (1.2 - 3.4 /CUMM) 1.2 Absolute Monocytes (0.10 - 0.60 /CUMM) 0.4 Absolute Eosinophils (0.0 - 0.7 /CUMM) 0.2 Absolute Basophils (0.0 - 0.2 /CUMM) 0 PUBS MCHC (33.0 - 37.0 G/DL) 32.7 L Toxicology Serum Alcohol (<10 MG/DL) < 10.0 Acetone Level (NEGATIVE) NEGATIVE Imaging/Other Studies: CT IMPRESSION: 1. No acute intracranial abnormality. However, please note that MRI of the brain is more sensitive in evaluating for acute ischemia. If there is a clinical concern for acute stroke, consider correlation with MRI of the brain. 2. Chronic appearing lacunar infarcts within the bilateral basal ganglia as well as within the barnes radiata. Subtle areas of hypoattenuation within the periventricular and deep cortical white matter are nonspecific but could reflect mild chronic microvascular ischemia. Assessment/Plan Assessment: Acute confusional spell; no focal abnormalities Etiology may be drug use; non convulsive seizure less likely Recommendations: Electroencephalogram Further discussion regarding use of illicit drugs Consult Acknowledgment - Thank you for your consult request.
[2017-02-23 14:43] VITALS: BP 120/70
[2017-02-23 22:48] VITALS: BP 122/74
[2017-02-24 06:00] VITALS: BP 142/78
[2017-02-24 07:00] VITALS: BP 142/78
--- NOTE | 2017-02-24 09:12 | PN- Housestaff ---
DIANA SEQUEIRA MD,SHAVON 02/24/17 0911: Subjective Follow-up For: Altered mental status Substance abuse Complaints: no complaints Subjective: Patient was comfortably sitting in the recliner. She did not complain of any chest pain, shortness of breath or acute changes in mental status overnight. Review of Systems Constitutional: Denies: chills, fever. Cardiovascular: Denies: chest pain, palpitations. Respiratory: Denies: cough, short of breath. Gastrointestinal: Denies: abdominal pain, nausea, vomiting. Genitourinary: Denies: dysuria. Musculoskeletal: Denies: back pain. Objective Last 24 Hrs of Vital Signs/I&O Vital Signs Date Time Temp Pulse Resp B/P B/P Pulse O2 O2 Flow FiO2 Mean Ox Delivery Rate 02/24 1422 98.3 86 20 132/80 96 Room Air 02/24 0700 98.7 84 20 142/78 96 Room Air 02/24 0600 98.7 84 20 142/78 02/23 2248 98.8 95 19 122/74 95 Room Air 02/23 1443 98.4 84 18 120/70 97 Room Air Intake & Output 02/24 1600 02/24 0800 02/24 0000 Intake Total 265 059 9003 Output Total Balance 556 725 9043 Intake, Oral 261 893 9135 Number 2 Bowel Movements Physical Exam General Appearance: Alert, Oriented X3, Cooperative HEENT: Atraumatic Neck: Supple Cardiovascular: Regular Rate, Normal S1, Normal S2 Lungs: Clear to Auscultation, Normal Air Movement Abdomen: Normal Bowel Sounds, Soft, No Tenderness Neurological: Normal Speech, Normal Tone, Sensation Intact Extremities: No Edema Current Medications: Current Medications Sig/Hilda Start time Last Medication Dose Route Stop Time Status Admin Enoxaparin Sodium 40 MG DAILY 02/23 1000 AC 02/24 [place] 0839 Insulin Aspart 0 TIDAC 02/23 1700 AC 02/24 NH 1315 Insulin Human Regular 0 Q6 02/22 2359 DC 02/23 NH 1153 Last 24 Hrs of Lab/Carlos Results Last 24 Hrs of Labs/Mics: Laboratory Tests 02/24/17 0644: Anion Gap 8, Estimated GFR > 60, BUN/Creatinine Ratio 25.0 Lines/Diet/Fluids Fluids/Infusions: none Lines: none Restraints: none Assessment/Plan Assessment: Ms. 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 #Altered mental status: Possible etiology is toxic encephalopathy secondary to cocaine overdose with urine toxicology positive for cocaine vs. post-ictal state, with mild elevation in prolactin to 19.2. Although patient has a history of uncontrolled diabetes with elevated blood sugars (344) on admission, labs are not consistent with DKA or HHS given bicarbonate, anion gap and serum osmolality WNL. Although patient has hyponatremia with Na 129, this likely represents pseudohyponatremia secondary to hypeorglycemia given normal osmolality. There is no evidence for other causes of acute altered mental status including hepatic encephalopathy given ammonia <9 and sepsis or GYROSCOPIC INSTRUMENT MECHANIC infections given patient is afebrile and without leukocytosis. CT Head with no acute infarcts but chronic lacunar infarcts as well as cortical changes consistent withmild chronic microvascular ischemia. Neurology consultation was obtained, EEG pending Neuro-checks Q6H can be discontinued Patient passed bedside swallow eval, diet was started yesterday Avoid sedating medications TRC and nebs Hyponatremia Current sodium 130 We'll get urine electrolytes, serum osmolality to determine the cause of hyponatremia. #Cocaine overdose: Troponin on admission negative. EKG with T wave inversions but no ST-T wave elevations or depressions. Troponin negative, EKG no acute changes #Hypomagnesemia: Mg 1.4 on admission. Administered 1 mg of IV Mg x2. Will follow-up on magnesium levels today #Insulin-dependent T2DM: Blood sugars elevated to 344 on initial presentation. On linagliptin and Novolog as outpatient. NovoLog sliding scale 3 times a day before meals Accu-checks 3 times a day before meals Check HbA1c 13.3 Patient will benefit from intensive outpatient diabetes management Patient currently on diabetic diet Patient is currently on Lovenox for DVT prophylaxis Patient is full code Problem List: 1. Cocaine abuse 2. Altered mental status 3. Cocaine use Pain Ratin Pain Location: 0 Pain Goal: Pain 4 or less Pain Plan: Continue current pain medications Tomorrow's Labs & Rationales: BEP for hyponatremia TITA MCNULTY 02/24/17 0937: Attending Review Statement Attending Statement Attending MD Statement: examined this patient, discuss w/resident/PA/PAPETERIE TABLE ASSEMBLER, agreed w/resident/PA/PAPETERIE TABLE ASSEMBLER, discussed with family, reviewed EMR data (avail), discussed with nursing, discussed with case mgmt, reviewed images, amended to note Attending Assessment/Plan: 56-year-old female with past medical history significant for hypertension, hyperlipidemia, MS, IDDM with neuropathy, anxiety, depression is being admitted to the floor for altered mental status. Neurolgoy consulted, awaiting EEG, vitals stable, anticipate d/c soon.
[2017-02-24 14:22] VITALS: BP 132/80
--- NOTE | 2017-02-24 16:01 | Discharge Summary ---
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 Vitals On admission, patient was arousable to verbal stimuli but very lethargic, confused would fall back asleep, oriented to place but not person or time. Dry mucous membranes, pupils RTL. Chest b/l clear anteriorly, Heart S1and S2 regular , Abdomen soft, NT. Neuro grossly nonfocal exam. Labs on admission showed Na 129 (corrected sodium is 135), BUN 31, bicarb normal, glucose 337, S. Osm 294, Mag 1.4, LFT normal, alk phos 129, ammonia <9, trop neg, TSH normal, Free T4 1.86, prolactin 19.2. UA clear with glucose >1000, Utox positive for cocaine and cannabis. Acetone neg. Alcohol <10. CXR neg. CT head: no acute infarcts, chronic lacunar infarcts+. EKG: SR, TWI V5-6, nonspecific ST-T changes. Patient was admitted on general medicine floor for the management of following problems Altered mental status Etiology is toxic encephalopathy secondary to cocaine overdose with urine toxicology positive for cocaine. There was no evidence for other causes of acute altered mental status including hepatic encephalopathy given ammonia <9 and sepsis or HOSPITALITY DIRECTOR infections given patient is afebrile and without leukocytosis. CT Head showed no acute infarcts but chronic lacunar infarcts as well as cortical changes consistent with mild chronic microvascular ischemia. Patient was also evaluated for possible seizures and post-ictal state, with mild elevation in prolactin to 19.2.Neurology consultation was obtained, EEG showed Normal 17-lead recording with no epileptiform or focal abnormalities identified. Swallow evaluation was done because of patient's altered mental status. Patient passed bedside swallow eval and diet was started. Cocaine overdose Patient was admitted with a U tox showing cocaine positive greater than 1000. Patient did not have any active chest pain during the hospital admission. Troponin was trended and it was negative. EKG showed T wave inversions but no ST -T wave elevations or depressions. Hypomagnesemia Most likely secondary to malnutrition versus chronic diarrhea. She denied any history of active diarrhea although she is on when necessary Imodium. Electrolytes were repleted during the hospital admission Uncontrolled Insulin-dependent T2DM Although patient has a history of uncontrolled diabetes with elevated blood sugars (344) on admission, labs are not consistent with DKA or HHS given bicarbonate, anion gap and serum osmolality WNL. Patient's blood sugars were erratic during admission. In order to stabilize the blood glucose she was started on long-acting insulin along with insulin sliding scale. HbA1c was 13.3. Patient will benefit from intensive outpatient diabetes management. She was provided with a reference for outpatient management of diabetes from electronics lead Dr. candelaria and warning coordination meteorologist. Pseudo-Hyponatremia Patient's hyponatremia was secondary to uncontrolled blood glucose. As the controlled blood sugars better's hyponatremia improved. Patient was on diabetic diet Patient was on Lovenox for DVT prophylaxis Patient was full code Patient was on management Allergies: Coded Allergies: NO KNOWN ALLERGIES (04/07/12) Disposition Summary Disposition Principal Diagnosis: Altered mental status Pseudo-Hyponatremia Hypomagnesemia Uncontrolled diabetes mellitus cocaine overdose Additional Diagnosis: History of multiple sclerosis History of insulin-dependent diabetes mellitus History of neuropathy History of Depression History of Anxiety Discharge Disposition: home or self care Discharge Instructions General Discharge Information Code Status: Full Code Patient's Diet: Consistent carbohydrate diet Patient's Activity: As tolerated Follow-Up Instructions/Appts: Follow-up with primary care doctor in a week after discharge. Follow-up with electronics lead Dr. candelaria after discharge. Follow-up with outpatient warning coordination meteorologist after discharge. Medications at Discharge Discharge Medications: Continue taking these medications: Gabapentin (Gabapentin) 400 MG CAPSULE 1 Capsule ORAL THREE TIMES DAILY Qty = 180 Comments: Last Taken:02/26/17 Time:9AM Atorvastatin Calcium (Atorvastatin Calcium) 10 MG TABLET 1 Tablet ORAL DAILY Qty = 90 Comments: Last Taken:02/25/17 Time:9AM Oxybutynin Chloride (Oxybutynin Chloride) 5 MG TABLET 1 Tablet ORAL TWICE DAILY Qty = 60 Comments: Last Taken:02/26/17 Time:9AM Lisinopril (Lisinopril) 10 MG TABLET 1 Tablet ORAL DAILY Qty = 90 Comments: Last Taken:02/26/17 Time:9AM Linagliptin (Tradjenta) 5 MG TABLET 1 Tablet ORAL DAILY Qty = 90 Comments: Last Taken: Time:NOT GIVEN Alprazolam (Alprazolam) 0.25 MG TABLET 1 Tablet ORAL DAILY as needed for ANXIETY Qty = 90 Comments: Last Taken:02/25/17 Time:730PM Citalopram Hydrobromide (Citalopram HBr) 20 MG TABLET 1.5 Tablet ORAL DAILY Qty = 45 Comments: Last Taken:02/26/17 Time:9AM Baclofen (Baclofen) 10 MG TABLET 1 Tablet ORAL THREE TIMES DAILY as needed for CRAMPING Qty = 90 Comments: Last Taken:02/25/17 Time:10AM Tramadol HCl (Tramadol HCl) 50 MG TABLET 1 Tablet ORAL TWICE DAILY Qty = 60 Comments: Last Taken: Time:NOT GIVEN Diphenoxylate HCl/Atropine (Lomotil 2.5-0.025 MG Tablet) 2.5 MG-0.025 MG TABLET 1 Tablet ORAL TAKE AT BEDTIME Qty = 30 Comments: Last Taken: Time:NOT GIVEN ON THIS ADMISSION Insulin Aspart, Recombinant (Novolog Flexpen) 100 UNIT/ML INSULN.PEN 10 Units Inject into fatty tissue 3 TIMES DAILY BEFORE MEALS Start taking the following new medications: Insulin Glargine,Hum.rec.anlog (Lantus Solostar) 100 UNIT/ML (3 ML) INSULN.PEN 10 Unit Inject into fatty tissue Every night Qty = 30 No Refills Instructions: . Comments: Last Taken:LEVEMIR GIVEN LONG ACTING INSULIN Time: 10 UNITS 02/26/17@9AM Copies To: OMI GILL APRN
[2017-02-24 21:49] VITALS: BP 148/96
[2017-02-25] VITALS: BP 148/96
[2017-02-25 06:30] VITALS: BP 118/82
--- NOTE | 2017-02-25 07:40 | PN- Housestaff ---
DIANA SEQUEIRA MD,[facility] 02/25/17 0739: Subjective Follow-up For: Altered mental status Substance abuse Complaints: no complaints Subjective: Patient was comfortably sitting in the bed. She did not complain of any chest pain, shortness of breath or acute changes in mental status overnight. Review of Systems Constitutional: Denies: chills, fever. EENTM: Denies: visual changes. Cardiovascular: Denies: chest pain, palpitations. Respiratory: Denies: cough, short of breath. Gastrointestinal: Denies: abdominal pain, diarrhea, nausea, vomiting. Genitourinary: Denies: discharge. Objective Last 24 Hrs of Vital Signs/I&O Vital Signs Date Time Temp Pulse Resp B/P B/P Pulse O2 O2 Flow FiO2 Mean Ox Delivery Rate 02/25 0630 99.2 84 18 118/82 95 Room Air 02/25 0000 98.6 85 20 148/96 02/24 2149 98.6 85 20 148/96 96 Room Air 02/24 1422 98.3 86 20 132/80 96 Room Air Intake & Output 02/25 1600 02/25 0800 02/25 0000 Intake Total 250 600 Output Total Balance 250 600 Intake, IV 10 Intake, Oral 240 600 Number 0 Bowel Movements Physical Exam General Appearance: Alert, Oriented X3, Cooperative, No Acute Distress Skin: No Rashes HEENT: Atraumatic Neck: No JVD Cardiovascular: Regular Rate, Normal S1, Normal S2 Lungs: Clear to Auscultation, Normal Air Movement Abdomen: Normal Bowel Sounds, Soft, No Tenderness Neurological: Normal Speech, Normal Tone Extremities: No Clubbing, No Cyanosis, No Edema Vascular: Normal Pulses Current Medications: Current Medications Sig/Hilda Start time Last Medication Dose Route Stop Time Status Admin Alprazolam 0.25 MG DAILY PRN 02/24 171 AC PO 03/03 171 Atorvastatin Calcium 10 MG DAILY 02/24 170 AC 02/25 PO 0741 Baclofen 10 MG TID PRN 02/24 171 AC PO Citalopram 30 MG DAILY 02/24 170 AC 02/25 Hydrobromide PO 07 Diphenoxylate HCl/ 2.5 MG DAILY PRN 02/24 171 AC Atropine PO Enoxaparin Sodium 40 MG DAILY 02/23 1000 AC 02/25 SC 0740 Gabapentin 400 MG TID 02/24 1701 AC 02/25 PO 0741 Insulin Aspart 0 TIDAC 02/23 1700 AC 02/25 SC 0741 Lisinopril 10 MG DAILY 02/24 1658 AC 02/25 PO 0741 Magnesium Sulfate 1 GM Q2H 02/24 1515 DC 02/24 Dextrose/Water 100 ML IV 02/24 1914 1849 Oxybutynin Chloride 5 MG BID 02/24 2200 AC 02/25 PO 0741 Last 24 Hrs of Lab/Carlos Results Last 24 Hrs of Labs/Mics: Laboratory Tests 02/25/17 0624: Sodium Pending, Potassium Pending, Chloride Pending, Carbon Dioxide Pending, Anion Gap Pending, BUN Pending, Creatinine Pending, BUN/Creatinine Ratio Pending , Magnesium Pending Lines/Diet/Fluids Restraints: none Assessment/Plan Assessment: Ms. 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 #Altered mental status: Possible etiology is toxic encephalopathy secondary to cocaine overdose with urine toxicology positive for cocaine vs. post-ictal state, with mild elevation in prolactin to 19.2. Although patient has a history of uncontrolled diabetes with elevated blood sugars (344) on admission, labs are not consistent with DKA or HHS given bicarbonate, anion gap and serum osmolality WNL. Although patient has hyponatremia with Na 129, this likely represents pseudohyponatremia secondary to hypeorglycemia given normal osmolality. There is no evidence for other causes of acute altered mental status including hepatic encephalopathy given ammonia <9 and sepsis or GRAIN WEIGHER infections given patient is afebrile and without leukocytosis. CT Head with no acute infarcts but chronic lacunar infarcts as well as cortical changes consistent withmild chronic microvascular ischemia. Neurology consultation was obtained, EEG was done yesterday, results pending Neuro-checks Q6H can be discontinued Patient passed bedside swallow eval, diet was started Avoid sedating medications TRC and nebs Hyponatremia Current sodium 130 We'll get urine electrolytes, serum osmolality to determine the cause of hyponatremia. From yesterday's electrolytes, hypotonic hyponatremia likely secondary to increased by mouth intake of fluids. Urine osmolarity pending #Cocaine overdose: Troponin on admission negative. EKG with T wave inversions but no ST-T wave elevations or depressions. Troponin negative, EKG no acute changes #Hypomagnesemia: Mg 1.4 on admission. Administered 1 mg of IV Mg x2. Will follow-up on magnesium levels today #Insulin-dependent T2DM: Blood sugars elevated to 344 on initial presentation. On linagliptin and Novolog as outpatient. NovoLog sliding scale 3 times a day before meals Accu-checks 3 times a day before meals Check HbA1c 13.3 Patient will benefit from intensive outpatient diabetes management Patient currently on diabetic diet Patient is currently on Lovenox for DVT prophylaxis Patient is full code Problem List: 1. Hypomagnesemia 2. Cocaine abuse 3. Altered mental status, unspecified Pain Ratin Pain Location: NA Pain Goal: Pain 4 or less Pain Plan: Continue current pain medications Tomorrow's Labs & Rationales: Not needed as patient will be discharged TITA MCNULTY 02/25/17 1008: Attending MD Review Statement Attending Statement Attending MD Statement: examined this patient, discuss w/resident/PA/CUSTOM CLOTHIER, agreed w/resident/PA/CUSTOM CLOTHIER, discussed with family, reviewed EMR data (avail), discussed with nursing, discussed with case mgmt, reviewed images, amended to note Attending Assessment/Plan: 56-year-old female with past medical history significant for hypertension, hyperlipidemia, MS, IDDM with neuropathy, anxiety, depression is being admitted to the floor for altered mental status. Hbaic 13, non compliance, Pseudohyponatremia with hyperglycemia and uncontrolled DM, Patient education and encourage complaince, basal insulin + RISS, Neurology consulted, f/u EEG, vitals stable, anticipate d/c soon.
--- NOTE | 2017-02-25 10:08 | Patient Discharge Instructions ---
Discharge Instructions General Discharge Information You were seen/treated for: Altered mental status Substance abuse Uncontrolled diabetes mellitus Special Instructions: Follow-up with primary care doctor in a week after discharge. Follow-up with senior product development scientist Dr. candelaria after discharge. Follow-up with outpatient windows migration technician after discharge. Diet Continue normal diet: No Recommended Diet: Diabetic Activity Full Activity/No Limits: Yes Acute Coronary Syndrome Inclusion Criteria At DC or during hospital stay patient has or had the following: ACS DIAGNOSIS No Discharge Core Measures Meds if any: Prescribed or Continued at Discharge Meds if any: NOT Prescribed or Continued at Discharge Congestive Heart Failure Inclusion Criteria At DC or during hospital stay patient has or had the following: CHF DIAGNOSIS No Discharge Core Measures Meds if any: Prescribed or Continued at Discharge Meds if any: NOT Prescribed or Continued at Discharge Cerebrovascular accident Inclusion Criteria At DC or during hospital stay patient has or had the following: CVA/TIA Diagnosis No Discharge Core Measures Meds if any: Prescribed or Continued at Discharge Meds if any: NOT Prescribed or Continued at Discharge Venous thromboembolism Inclusion Criteria VTE Diagnosis No VTE Type NONE VTE Confirmed by (Test) NONE Discharge Core Measures - Per Current guidelines, there needs to be overlap - treatment for the first 5 days of Warfarin therapy. - If discharged on Warfarin prior to 5 days of - overlap therapy, the patient will need to be - assessed for post discharge needs including - *Post discharge parental anticoagulation - *Warfarin and/or parental anticoagulation education - *Follow up date to check INR post discharge At least 5 days overlap therapy as Inpatient No Meds if any: Prescribed or Continued at Discharge Note: Overlap Therapy is Warfarin and Anticoagulant Meds if any: NOT Prescribed or Continued at Discharge
[2017-02-25] MEDS ORDERED: LANTUS SOL100 UNIT/1 SC (10:15)
--- NOTE | 2017-02-25 10:17 | ELECTROENCEPHALOGRAM REPORT ---
Electroencephalogram Report Electroencephalogram Results Date of service: 02/24/17 Attending MD: RADAMES JUAREZ MD Stretcher Operator: Shay Nuñez EEG Number: [id number] Test Utilizes: 10-20 system, 21 lead 18 channel digital recording Pertinent Hx/Physical/Neuro Findings/Clin Diagnosis: Altered mental status, rule out non-convulsive seizures Inpatient Medications: Current Medications Sig/Hilda Start time Last Medication Dose Route Stop Time Status Admin Alprazolam 0.25 MG DAILY PRN 02/24 1715 AC PO 03/03 171 Atorvastatin Calcium 10 MG DAILY 02/24 1702 AC 02/25 PO 0741 Baclofen 10 MG TID PRN 02/24 1715 AC PO Citalopram 30 MG DAILY 02/24 1703 AC 02/25 Hydrobromide PO 0741 Diphenoxylate HCl/ 2.5 MG DAILY PRN 02/24 1715 AC Atropine PO Enoxaparin Sodium 40 MG DAILY 02/23 1000 AC 02/25 SC 0740 Gabapentin 400 MG TID 02/24 1701 AC 02/25 PO 0741 Insulin Aspart 0 TIDAC 02/25 1200 AC SC Insulin Aspart 0 TIDAC 02/23 1700 DC 02/25 SC 0741 Lisinopril 10 MG DAILY 02/24 1658 AC 02/25 PO 0741 Magnesium Sulfate 1 GM Q2H 02/24 1515 DC 02/24 Dextrose/Water 100 ML IV 02/24 1914 1849 Oxybutynin Chloride 5 MG BID 02/24 2200 AC 02/25 PO 0741 Interpretation: The waking background later in the recording is composed of regular 10-11 Hz posterior alpha seen symmetrically and of equal amplitude over both hemispheres with intermixed low amplitude beta frequency in the frontal regions. Early in the record there is electrode artifact the T6 electrode position which the dairy lab technician was eventually able to overcome. In drowsiness greater slowing in the theta range is noted. There are no focal, lateralized or epileptiform abnormalities. No sleep recorded. Hyperventilation and photic stimulation at no additional information. Impression: Normal recording in the states of wakefulness and drowsiness.
--- NOTE | 2017-02-25 10:24 | ELECTROENCEPHALOGRAM REPORT ---
See Addendum Electroencephalogram Report Electroencephalogram Results Date of service: 02/24/17 Attending MD: RADAMES JUAREZ MD Jewel Bearing Facer: Shay Nuñez EEG Number: [id number] Test Utilizes: 10-20 system, 17 lead 18 channel digital recording Pertinent Hx/Physical/Neuro Findings/Clin Diagnosis: 56-year-old patient being evaluated for a seizure disorder. She was quite nervous and the feed research technician had to use a reduced 17 channel recording. Inpatient Medications: Current Medications Sig/Hilda Start time Last Medication Dose Route Stop Time Status Admin Alprazolam 0.25 MG DAILY PRN 02/24 1715 AC PO 03/03 1714 Atorvastatin Calcium 10 MG DAILY 02/24 1702 AC 02/25 PO 0741 Baclofen 10 MG TID PRN 02/24 1715 AC 02/25 PO 1016 Citalopram 30 MG DAILY 02/24 1703 AC 02/25 Hydrobromide PO 0741 Diphenoxylate HCl/ 2.5 MG DAILY PRN 02/24 1715 AC Atropine PO Enoxaparin Sodium 40 MG DAILY 02/23 1000 AC 02/25 SC 0740 Gabapentin 400 MG TID 02/24 1701 AC 02/25 PO 0741 Insulin Aspart 0 TIDAC 02/25 1200 AC SC Insulin Aspart 0 TIDAC 02/23 1700 DC 02/25 SC 0741 Insulin Detemir 10 UNITS DAILY 02/25 1015 UNVr 02/25 SC 1019 Lisinopril 10 MG DAILY 02/24 1658 AC 02/25 PO 0741 Magnesium Sulfate 1 GM Q2H 02/24 1515 DC 02/24 Dextrose/Water 100 ML IV 02/24 1914 1849 Oxybutynin Chloride 5 MG BID 02/24 2200 AC 02/25 PO 0741 Interpretation: The background is dominated by low amplitude beta throughout the recording. Occasional low amplitude irregular activity in the alpha frequency range is seen posteriorly. Fairly frequent muscle, movement artifact but no clear focal, lateralized or epileptiform abnormalities. No sleep recorded. Hyperventilation was deferred but photic stimulation was done and unremarkable Impression: Normal 17-lead recording with no epileptiform or focal abnormalities identified.
[2017-02-25 14:17] VITALS: BP 104/70
[2017-02-25 20:00] VITALS: BP 104/70
[2017-02-25 22:00] VITALS: BP 104/70
[2017-02-25 22:32] VITALS: BP 116/82
[2017-02-26] VITALS: BP 116/82
[2017-02-26 02:00] VITALS: BP 112/70; BP 116/82
[2017-02-26 04:00] VITALS: BP 112/70
[2017-02-26 06:00] VITALS: BP 112/70; BP 112/78
--- NOTE | 2017-02-26 07:37 | PN- Housestaff ---
DIANA SEQUEIRA MD,[facility] 02/26/17 0737: Subjective Follow-up For: Altered mental status Substance abuse Complaints: no complaints Subjective: Patient was comfortably sitting in the bed. She did not complain of any chest pain, shortness of breath or acute changes in mental status overnight. Her fingersticks were in 300s yesterday. We adjusted the dose of insulin and not Accu-Cheks have improved to 170s and 200 Review of Systems Constitutional: Denies: chills, fever. Cardiovascular: Denies: chest pain, palpitations. Respiratory: Denies: cough, short of breath. Gastrointestinal: Denies: abdominal pain, nausea, vomiting. Genitourinary: Denies: dysuria. Musculoskeletal: Denies: back pain, joint pain. Objective Last 24 Hrs of Vital Signs/I&O Vital Signs Date Time Temp Pulse Resp B/P B/P Pulse O2 O2 Flow FiO2 Mean Ox Delivery Rate 02/26 0600 98.7 74 22 112/70 02/26 0600 98.4 76 22 112/78 95 Room Air 02/26 0400 97.8 74 22 112/70 02/26 0200 98.9 84 22 116/82 02/26 0200 98.7 74 22 112/70 99 Room Air 02/26 0000 98.9 84 22 116/82 02/25 2232 98.9 84 22 116/82 100 Room Air 02/25 2200 98.3 90 20 104/70 02/25 2000 98.3 90 20 104/70 02/25 1417 98.3 90 20 104/70 96 Room Air Intake & Output 02/26 0800 02/26 0000 02/25 1600 Intake Total 100 350 900 Output Total Balance 100 350 900 Intake, Oral 100 350 900 Physical Exam General Appearance: Alert, Oriented X3, Cooperative, No Acute Distress HEENT: Atraumatic Neck: Supple Cardiovascular: Regular Rate, Normal S1, Normal S2, No Murmurs Lungs: Clear to Auscultation Abdomen: Normal Bowel Sounds, Soft, No Tenderness Neurological: Normal Speech, Normal Tone, Sensation Intact Extremities: No Edema Current Medications: Current Medications Sig/Hilda Start time Last Medication Dose Route Stop Time Status Admin Alprazolam 0.25 MG DAILY PRN 02/24 171 AC 02/25 PO 03/03 171 1920 Atorvastatin Calcium 10 MG DAILY 02/24 1702 AC 02/25 PO 0741 Baclofen 10 MG TID PRN 02/24 1715 AC 02/25 PO 1016 Citalopram 30 MG DAILY 02/24 1703 AC 02/25 Hydrobromide PO 0741 Diphenoxylate HCl/ 2.5 MG DAILY PRN 02/24 1715 AC Atropine PO Enoxaparin Sodium 40 MG DAILY 02/23 1000 AC 02/25 SC 0740 Gabapentin 400 MG TID 02/24 1701 AC 02/25 PO 2124 Insulin Aspart 0 TIDAC 02/25 1200 AC 02/25 SC 1649 Insulin Aspart 0 TIDAC 02/23 1700 DC 02/25 SC 0741 Insulin Detemir 10 UNITS DAILY 02/25 1015 AC 02/25 SC 1019 Lisinopril 10 MG DAILY 02/24 1658 AC 02/25 PO 0741 Oxybutynin Chloride 5 MG BID 02/24 2200 AC 02/25 PO 2124 Last 24 Hrs of Lab/Carlos Results Last 24 Hrs of Labs/Mics: Laboratory Tests 02/26/17 0615: Sodium Pending, Potassium Pending, Chloride Pending, Carbon Dioxide Pending, Anion Gap Pending, BUN Pending, Creatinine Pending, BUN/Creatinine Ratio Pending Lines/Diet/Fluids Restraints: none Assessment/Plan Assessment: Ms. 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 #Altered mental status: Possible etiology is toxic encephalopathy secondary to cocaine overdose with urine toxicology positive for cocaine vs. post-ictal state, with mild elevation in prolactin to 19.2. Although patient has a history of uncontrolled diabetes with elevated blood sugars (344) on admission, labs are not consistent with DKA or HHS given bicarbonate, anion gap and serum osmolality WNL. Although patient has hyponatremia with Na 129, this likely represents pseudohyponatremia secondary to hypeorglycemia given normal osmolality. There is no evidence for other causes of acute altered mental status including hepatic encephalopathy given ammonia <9 and sepsis or CORPORATE TRAVEL MANAGER infections given patient is afebrile and without leukocytosis. CT Head with no acute infarcts but chronic lacunar infarcts as well as cortical changes consistent withmild chronic microvascular ischemia. Neurology consultation was obtained, EEG showed Normal 17-lead recording with no epileptiform or focal abnormalities identified. Neuro-checks Q6H can be discontinued Patient passed bedside swallow eval, diet was started, currently on consistent carbohydrate diet Avoid sedating medications TRC and nebs Hyponatremia Current sodium 132 Increased blood sugars contributing to pseudohyponatremia We'll got urine electrolytes, serum osmolality to determine the cause of hyponatremia. From yesterday's electrolytes, hypotonic hyponatremia likely secondary to increased by mouth intake of fluids is another possibility. Urine osmolarity 457. #Cocaine overdose: Troponin on admission negative. EKG with T wave inversions but no ST-T wave elevations or depressions. Troponin negative, EKG no acute changes #Hypomagnesemia: Mg 1.4 on admission. Administered 1 mg of IV Mg x2. Will follow-up on magnesium levels today #Insulin-dependent T2DM: Blood sugars elevated to 344 on initial presentation. On linagliptin and Novolog as outpatient. NovoLog sliding scale 3 times a day before meals Accu-checks 3 times a day before meals Check HbA1c 13.3 Accu-Cheks improved after adjusting insulin to 200s. Patient will benefit from intensive outpatient diabetes management Patient currently on diabetic diet Patient is currently on Lovenox for DVT prophylaxis Patient is full code Problem List: 1. Altered mental status 2. Hyperglycemia 3. Cocaine use Pain Ratin Pain Location: NA Pain Goal: Pain 4 or less Pain Plan: Continue current pain medications Tomorrow's Labs & Rationales: Not needed DVT/Prophylaxis: pharmacological TITA MCNULTY 02/26/17 0920: Attending MD Review Statement Attending Statement Attending MD Statement: examined this patient, discuss w/resident/PA/FULL STACK NET DEVELOPER, agreed w/resident/PA/FULL STACK NET DEVELOPER, discussed with family, reviewed EMR data (avail), discussed with nursing, discussed with case mgmt, reviewed images, amended to note Attending Assessment/Plan: 56-year-old female with past medical history significant for hypertension, hyperlipidemia, MS, IDDM with neuropathy, anxiety, depression is being admitted to the floor for altered mental status. Hbaic 13, non compliance, Pseudohyponatremia improving with hyperglycemia and uncontrolled DM, Patient education and encourage complaince, basal insulin + RISS, Neurology consulted, EEG wnl, vitals stable, anticipate d/c soon. referral to dietitian and endo at d /c as o/p, f/u o/p PCP.
[2017-02-26] MEDS ORDERED: LANTUS SOL100 UNIT/1 SC (09:53)
[2017-02-26 14:24] VITALS: BP 112/52
[2017-02-28] MEDS ORDERED: GLUCOMETER (21:30)
== END 2017-02-26 15:26 | DRG 917 ==
LOC: ERH 15:37 → 2NB 20:57 → ERHI 20:57 → ENRESERV 21:19 → 2NB 21:59 → ENPENDDIS 02-26 09:24 → 2NB 02-26 15:26
PROVIDERS: Physician Assistant Medical; ADMIT Student in an Organized Health Care Education/Training Program
DX: T40.5X1A Poisoning by cocaine, accidental (unintentional), initial encounter (principal); G92 Toxic encephalopathy; E11.40 Type 2 diabetes mellitus with diabetic neuropathy, unspecified; E87.1 Hypo-osmolality and hyponatremia; G35 Multiple sclerosis; E83.42 Hypomagnesemia; Z79.4 Long term (current) use of insulin; F17.200 Nicotine dependence, unspecified, uncomplicated; F14.10 Cocaine abuse, uncomplicated
CPT/HCPCS: 2NBSP; 84133; 84300; 36415; 80307; 81003; 82436; 82570; 93005; 93010; 95816; G0480; J1650; J1815; J7042

== ENCOUNTER 2017-04-04 12:56 | Emergency (ER) | payer OTHER, MEDICARE ==
[~2017-04-04 12:56] MED LIST: ALPRAZOLAM0.25 M1 PO; ATORVASTATIN CA10 M1 PO; BACLOFEN10 M1 PO; CITALOPRAM HBR20 MG PO; GABAPENTIN400 M2 PO; GLUCOMETER; LANTUS SOL100 UNIT/1 SC; LISINOPRIL10 M1 PO; LOMOTIL 2.5-0.1 EACH PO; NOVOLOG FL100 UNIT/1 SC; OXYBUTYNIN CHLOR5 M2 PO; TRADJENTA5 M1 PO; TRAMADOL HCL50 M1 PO
--- NOTE | 2017-04-04 14:29 | RADIOLOGY REPORT ---
EXAMINATION: XR CHEST CLINICAL INFORMATION: Cough with hypoglycemia COMPARISON: Chest x-ray of 02/28/2017, 02/22/2017. TECHNIQUE: 2 views of the chest were obtained. FINDINGS: The cardiomediastinal silhouette is some stable with mild cardiomegaly. The lungs are mildly hypoexpanded. No focal consolidation, changes of congestion or pleural effusions. No pneumothorax. The osseous structures and upper abdomen are grossly unremarkable. IMPRESSION: Mild cardiomegaly. No radiographic evidence of pneumonia. No acute pulmonary process.
[2017-04-04 14:30] LABS: ABSOLUTE BASOPHIL COUNT 0 /CUMM (0.0-0.2); ABSOLUTE EOSINOPHIL COUNT 0.6 /CUMM (0.0-0.7); ABSOLUTE GRANULOCYTE CT 7.6 /CUMM (1.4-6.5); ABSOLUTE LYMPH COUNT 1.1 /CUMM (1.2-3.4); ABSOLUTE MONOCYTE COUNT 0.5 /CUMM (0.10-0.60); BASOPHIL % 0.5 % (0.0-2.0); GRANULOCYTE % 77.6 % (42.2-75.2); HEMATOCRIT 38.9 % (37-47); MEAN CORPUSCULAR HGB 26.5 PG (27.0-31.0); MEAN CORPUSCULAR HGB CONC 33.3 G/DL (33.0-37.0); MEAN CORPUSCULAR VOLUME 79.5 FL (81.0-99.0); MEAN PLATELET VOLUME 7.2 FL (7.4-10.4); PLATELET COUNT 432 /CUMM (130-400); RBC DISTRIBUTION WIDTH 16.4 % (11.5-14.5); WHITE BLOOD CELL COUNT 9.8 /CUMM (4.8-10.8)
[2017-04-04] MEDS ORDERED: LANTUS SOL100 UNIT/1 SC (14:52)
--- NOTE | 2017-04-04 19:14 | ED GENERAL ADULT ---
History of Present Illness General Chief Complaint: Altered Mental Status Stated Complaint: HYPOGYCEMIA Source: patient, family Exam Limitations: no limitations Vital Signs & Intake/Output Vital Signs & Intake/Output Vital Signs Date Time Temp Pulse Resp B/P B/P Pulse O2 O2 Flow FiO2 Mean Ox Delivery Rate 04/047 98 Room Air 04/04 2008 97.3 78 18 113/59 97 Room Air 04/04 1748 114/62 04/04 1705 96.5 74 18 96/59 97 Room Air 04/04 1526 Room Air 04/04 1449 96.6 75 18 133/67 99 Room Air 04/04 1300 94.4 72 19 113/57 98 Room Air Allergies Coded Allergies: NO KNOWN ALLERGIES (04/07/12) Reconcile Medications Alprazolam 0.25 MG TABLET 1 TAB PO DAILY PRN ANXIETY (Reported) Atorvastatin Calcium 10 MG TABLET 1 TAB PO DAILY CHOLESTEROL (Reported) Baclofen 10 MG TABLET 1 TAB PO TID PRN CRAMPING (Reported) Citalopram Hydrobromide (Citalopram HBr) 20 MG TABLET 1.5 TAB PO DAILY MENTAL HEALTH (Reported) Diphenoxylate HCl/Atropine (Lomotil 2.5-0.025 MG Tablet) 2.5 MG-0.025 MG TABLET 1 TAB PO QHS INCONTINENCE (Reported) Gabapentin 400 MG CAPSULE 1 CAP PO TID MS (Reported) Insulin Aspart, Recombinant (Novolog Flexpen) 100 UNIT/ML INSULN.PEN 10 UNITS SC TIDAC DM (Reported) Insulin Glargine,Hum.rec.anlog (Lantus Solostar) 100 UNIT/ML (3 ML) INSULN.PEN 13 UNIT SC QPM DIABETES (Reported) Linagliptin (Tradjenta) 5 MG TABLET 1 TAB PO DAILY DM (Reported) Lisinopril 10 MG TABLET 1 TAB PO DAILY BP (Reported) Oxybutynin Chloride 5 MG TABLET 1 TAB PO BID BLADDER (Reported) Tramadol HCl 50 MG TABLET 1 TAB PO BID PAIN (Reported) Triage Note: PT BIBA FROM HOME. STATED PT WAS FOUND DOWN AT HOME WITH BLOOD GLUCOSE LEVEL OF 23MG/DL 100ML OF D10 WAS ADMINISTERED, SUGAR INCREASED TO 125MG/DL. IN ER PT IS A&OX2 FAMILY AT BEDSIDE PER MOTHER THIS IS PT 4TH ADMIT TO ED. CURRENT SUGAR IS NOTED TO BE LESS THAN 50. CORY MOTTA MADE AWARE. A&O X2. Triage Nurses Notes Reviewed? yes HPI: 56-year-old female with a history of MS, diabetes, hypertension, hyperlipidemia brought in by ambulance from home after she was found with altered mental status and fingerstick by family member showed blood glucose level of 23. Patient was given 100 mL of D10, with increase in blood glucose to 125. On arrival to the ED patient had normal mentation but blood glucose level was 59. Patient takes 13 units of Lantus nightly before bed, with last dose at 9 PM last night. Patient uses NovoLog on a sliding scale before meals. Reports eating 1 meal prior to arrival and administering 10 units of NovoLog prior to that meal. Denies fevers, URI symptoms, cough, sputum, abdominal pain, nausea, vomiting, diarrhea, dysuria. (ÁNGELA GARCIA PA-C) Past History Travel History Traveled to [place] past 21 day No Medical History Any Pertinent Medical History? see below for history Neurological: multiple sclerosis, peripheral neuropathy EENT: NONE Cardiovascular: hypertension, hyperlipidemia Respiratory: NONE Gastrointestinal: NONE Hepatic: NONE Renal: NONE Musculoskeletal: NONE Psychiatric: anxiety, depression Endocrine: diabetes Blood Disorders: NONE Cancer(s): NONE History of MRSA: No History of VRE: No History of CDIFF: No Surgical History Surgical History: none Psychosocial History Services at Home None What is your primary language Malian Tobacco Use: Current Daily Use Daily Tobacco Use Amount/Type: => 5 Cigarettes daily Family History Hx Contributory? No (ÁNGELA GARCIA PA-C) Review of Systems Review of Systems Constitutional: Reports: no symptoms. EENTM: Reports: no symptoms. Respiratory: Reports: no symptoms. Cardiovascular: Reports: no symptoms. GI: Reports: no symptoms. Genitourinary: Reports: no symptoms. Musculoskeletal: Reports: no symptoms. Skin: Reports: no symptoms. Neurological/Psychological: Reports: confusion. Denies: headache, numbness, paresthesia, tingling, tremors, weakness. Hematologic/Endocrine: Reports: no symptoms. Immunologic/Allergic: Reports: no symptoms. (ÁNGELA GARCIA PA-C) Physical Exam Physical Exam General Appearance: well developed/nourished, no apparent distress, alert, awake , comfortable Head: atraumatic Eyes: Bilateral: normal appearance, PERRL, EOMI. Ears, Nose, Throat: normal ENT inspection Neck: normal inspection, supple, full range of motion Respiratory: normal breath sounds, lungs clear Cardiovascular: regular rate/rhythm, normal peripheral pulses Gastrointestinal: normal bowel sounds, soft, non-tender Extremities: normal inspection Neurologic/Psych: no motor/sensory deficits, awake, alert, oriented x 3, normal gait, normal mood/affect, log grader II-XII nml as tested Skin: intact, normal color, warm/dry Core Measures ACS in differential dx? No CVA/TIA Diagnosis: No Severe Sepsis Present: No Septic Shock Present: No (RADHA JOYNER,ÁNGELA) Progress Differential Diagnoses I considered the following diagnoses in my evaluation of the patient: [ Hypoglycemia secondary to medication error versus infection versus ACS] Plan of Care: Orders Procedure Date/time Status Add-on Test (ER Only) 04/04 1911 Active EKG 04/04 1427 Active FingerStick- Glucose 04/04 1355 Active URINALYSIS 04/04 1355 Complete CBC WITHOUT DIFFERENTIAL 04/04 1355 Complete BASIC METABOLIC PANEL 04/04 1355 Complete TROPONIN LEVEL 04/04 1232 Complete Laboratory Tests 04/04/17 2005: Urine Color YEL, Urine Clarity CLEAR, Urine pH 6.0, Ur Specific [place] 1.020, Urine Protein NEG, Urine Ketones NEG, Urine Nitrite NEG, Urine Bilirubin NEG, Urine Urobilinogen 0.2, Ur Leukocyte Esterase MOD H, Ur Microscopic SEDIMENT EXAMINED, Urine RBC RARE, Urine WBC 5-10 H, Ur Epithelial Cells MANY H, Urine Crystals 4+ CA OX H, Urine Hemoglobin NEG, Urine Glucose NEG 04/04/17 1232: Anion Gap 11, Estimated GFR > 60, BUN/Creatinine Ratio 27.5 H, Glucose 44 *L, Calcium 10.1, Troponin I < 0.01, CBC w Diff NO MAN DIFF REQ, RBC 4.90, MCV 79.5 L, MCH 26.5 L, RDW 16.4 H, MPV 7.2 L, Gran % 77.6 H, Lymphocytes % 11.3 L, Monocytes % 4.6, Eosinophils % 6.0 H, Basophils % 0.5, Absolute Granulocytes 7.6 H, Absolute Lymphocytes 1.1 L, Absolute Monocytes 0.5, Absolute Eosinophils 0.6, Absolute Basophils 0, PUBS MCHC 33.3 EKG shows NSR. Labs, urine, and CXR unremarkable. Pt's glucose has been holding in the 200's after a total of 400mL D10 and 2 meals. Patient monitored until 9 PM, which is 24 hours after her last dose of Lantus, with 9:00 PM glucose of 305. Discussed with PMD and patient started to discontinue her long-acting insulin, and to only continue her short-acting sliding scale insulin until she is reevaluated in the office. Patient struck directed to call her PMD's office on Friday morning for an appointment. (ÁNGELA GARCIA PA-C) Initial ED EKG: NSR, no ST elevation, non-specific T wave inversions in V5 and V6 (ÁNGELA GARCIA PA-C) Departure Departure Disposition: HOME OR SELF CARE Condition: Stable Clinical Impression Primary Impression: Hypoglycemia Referrals: OMI GILL APRN (PCP/Family) Additional Instructions: Discontinue your nighttime Lantus. Continue taking your NovoLog on a sliding scale before meals. Follow-up with your primary care doctor on Friday for reevaluation. Return to the ER for any normal resting symptoms. Departure Forms: Customer Survey General Discharge Information (ÁNGELA GARCIA PA-C) PA/CUSTOMER SERVICE CLERK Co-Sign Statement Statement: ED Attending supervision documentation- [] I saw and evaluated the patient. I have also reviewed all the pertinent lab results and diagnostic results. I agree with the findings and the plan of care as documented in the PA's/CUSTOMER SERVICE CLERK's documentation. [X] I have reviewed the ED Record and agree with the PA's/CUSTOMER SERVICE CLERK's documentation. [] Additions or exceptions (if any) to the PAs/CUSTOMER SERVICE CLERK's note and plan are summarized below: [] (POONAM FREDERICK,MARLENE Rodriguez) Critical Care Note Critical Care Note Critical Care Time: non-applicable (ÁNGELA GARCIA PA-C)
[2017-04-04 20:08] VITALS: BP 113/59
== END 2017-04-04 21:20 ==
LOC: ERH 12:56
PROVIDERS: Physician Assistant
DX: E11.649 Type 2 diabetes mellitus with hypoglycemia without coma (principal); Z79.4 Long term (current) use of insulin
CPT/HCPCS: 81001; 93005; 93010; 96374

== ENCOUNTER 2018-01-05 21:52 | Inpatient (IN) | payer OTHER, MEDICARE ==
[~2018-01-05] VITALS: Ht 149.9 cm; Wt 59.1 kg
--- NOTE | 2018-01-05 21:59 | ED AMS/SEIZURE/WEAK/DIZZY ---
History of Present Illness General Chief Complaint: Abdominal Pain/Flank Pain Stated Complaint: ABD PAIN/VOMITING Source: patient, EMS Exam Limitations: poor historian Vital Signs & Intake/Output Vital Signs & Intake/Output Vital Signs Date Time Temp Pulse Resp B/P B/P Pulse O2 O2 Flow FiO2 Mean Ox Delivery Rate 01/06 0006 97.6 72 20 115/60 97 Room Air 01/05 2156 97.6 81 20 172/88 91 Room Air ED Intake and Output 01/06 0000 01/05 1200 Intake Total 1000 Output Total Balance 1000 Intake, IV 1000 Patient 160 lb Weight Weight Estimated Measurement Method Allergies Coded Allergies: NO KNOWN ALLERGIES (04/07/12) Reconcile Medications Alprazolam 0.25 MG TABLET 1 TAB PO DAILY PRN ANXIETY (Reported) Atorvastatin Calcium 10 MG TABLET 1 TAB PO DAILY CHOLESTEROL (Reported) Baclofen 10 MG TABLET 1 TAB PO TID PRN CRAMPING (Reported) Citalopram Hydrobromide (Citalopram HBr) 20 MG TABLET 1.5 TAB PO DAILY MENTAL HEALTH (Reported) Diphenoxylate HCl/Atropine (Lomotil 2.5-0.025 MG Tablet) 2.5 MG-0.025 MG TABLET 1 TAB PO QHS INCONTINENCE (Reported) Ergocalciferol (Vitamin D2) (Vitamin D2) 50,000 UNIT CAPSULE 1 CAP PO QW VITAMIN SUPPORT (Reported) Gabapentin 400 MG CAPSULE 1 CAP PO Q4 MS (Reported) Insulin Aspart, Recombinant (Novolog Flexpen) 100 UNIT/ML INSULN.PEN 10 UNITS SC TIDAC DM (Reported) Insulin Glargine,Hum.rec.anlog (Lantus Solostar) 100 UNIT/ML (3 ML) INSULN.PEN 13 UNIT SC QPM DIABETES (Reported) Linagliptin (Tradjenta) 5 MG TABLET 1 TAB PO DAILY DM (Reported) Lisinopril 10 MG TABLET 1 TAB PO DAILY BP (Reported) Oxybutynin Chloride 5 MG TABLET 1 TAB PO BID BLADDER (Reported) Tramadol HCl 50 MG TABLET 1 TAB PO BID PAIN (Reported) Triage Nurses Notes Reviewed? yes Onset: Abrupt Duration: unknown duration Timing: recent history No Modifying Factors: none HPI: 57-year-old female comes into the emergency room for further evaluation of nausea vomiting increased weakness. She also reports some shortness of breath. Patient is currently been sleeping over at her friend's house. She has a history of MS and diabetes. She has not filled her insulin. She denies any chest pain or abdominal pain. Denies any headache. She has been increasingly weak to the point where she can't ambulate. (Jagdeep Pritchett) Past History Travel History Traveled to [place] past 21 day No Medical History Any Pertinent Medical History? see below for history Neurological: multiple sclerosis, peripheral neuropathy EENT: NONE Cardiovascular: hypertension, hyperlipidemia Respiratory: NONE Gastrointestinal: NONE Hepatic: NONE Renal: NONE Musculoskeletal: NONE Psychiatric: anxiety, depression Endocrine: diabetes Blood Disorders: NONE Cancer(s): NONE AUDIOVISUAL AIDS TECHNICIAN/Reproductive: NONE History of MRSA: No History of VRE: No History of CDIFF: No Influenza Vaccine: 05/28/17 Surgical History Surgical History: HYSTERECTOMY 28 YRS AGO Psychosocial History Who do you live with Mother Services at Home None What is your primary language Persian Tobacco Use: Current Daily Use Daily Tobacco Use Amount/Type: => 5 Cigarettes daily ETOH Use: denies use Family History Hx Contributory? No (Jagdeep Pritchett) Review of Systems Review of Systems Constitutional: Reports: see HPI. EENTM: Reports: no symptoms. Respiratory: Reports: see HPI. Cardiovascular: Reports: no symptoms. GI: Reports: see HPI. Genitourinary: Reports: no symptoms. Musculoskeletal: Reports: no symptoms. Skin: Reports: no symptoms. Neurological/Psychological: Reports: no symptoms. Hematologic/Endocrine: Reports: no symptoms. Immunologic/Allergic: Reports: no symptoms. All Other Systems: Reviewed and Negative (Jagdeep Pritchett) Physical Exam Physical Exam General Appearance: lethargic, moderate distress Head: atraumatic Eyes: Bilateral: normal appearance. Ears, Nose, Throat: vomitng around mouth, black Neck: normal inspection Respiratory: no respiratory distress Cardiovascular: regular rate/rhythm Gastrointestinal: soft Back: normal inspection Extremities: normal range of motion Neurologic/Psych: oriented x 3 Skin: intact Core Measures ACS in differential dx? Yes CVA/TIA Diagnosis No Sepsis Present: No Sepsis Focused Exam Completed? No (Jagdeep Pritchett) Progress Differential Diagnosis: arrythmia, alcohol intoxication, CVA/stroke, electrolyte imbalance, GI bleed, pneumonia, UTI/pyelo Plan of Care: Orders Procedure Date/time Status Regular Diet 01/06 B Active LACTIC ACID 01/06 0058 Active Patient Data 01/05 2341 Active Add-on Test (ER Only) 01/05 2339 Active URINE DRUGS OF ABUSE 01/05 2339 Active ED Holding Orders 01/05 2338 Active Admit to inpatient 01/05 2338 Active Vital Signs 01/05 2338 Active Code Status 01/05 2338 Active ETHANOL 01/05 2205 Complete FingerStick- Glucose 01/05 2202 Active URINALYSIS 01/05 2158 Complete TROPONIN LEVEL 01/05 2158 Complete PARTIAL THROMBOPLASTIN TIME 01/05 2158 Complete PROTHROMBIN TIME 01/05 2158 Complete LACTIC ACID 01/05 2158 Complete COMPREHENSIVE METABOLIC PANEL 01/05 2158 Complete CBC WITHOUT DIFFERENTIAL 01/05 2158 Complete EKG 01/05 2158 Active Intake & Output 01/05 2157 Active Current Medications Sig/Hilda Start time Last Medication Dose Stop Time Status Admin Methylprednisolone 1,000 MG ONCE ONE 01/06 0015 AC (Solu Medrol) 01/06 0114 Dextrose/Water 1,000 ML (D5W 1000) Methylprednisolone 1,000 MG DAILY 01/06 0000 CAN (Solu Medrol) Dextrose/Water 1,000 ML (D5W 1000) Sodium Chloride 1,000 ML ONCE ONE 01/05 2330 AC 01/05 (Normal Saline 0.9%) 01/06 609 2337 Laboratory Tests 01/05/18 2352: Urine Opiates Screen Pending, Methadone Screen Pending, Barbiturate Screen Pending, Ur Phencyclidine Scrn Pending, Amphetamines Screen Pending, U Benzodiazepines Scrn Pending, Urine Cocaine Screen Pending, Urine Cannabis Screen Pending, Urine Color YEL, Urine Clarity CLEAR, Urine pH 6.0, Ur Specific [place] 1.025, Urine Protein NEG, Urine Ketones NEG, Urine Nitrite NEG, Urine Bilirubin NEG, Urine Urobilinogen 0.2, Ur Leukocyte Esterase NEG, Ur Microscopic EXAM NOT REQUIRED, Urine Hemoglobin NEG, Urine Glucose >=1000 H 01/05/182204: Anion Gap 13, Estimated GFR > 60, BUN/Creatinine Ratio 28.3 H, Glucose 335 H, Lactic Acid 2.1, Calcium 9.5, Total Bilirubin 0.9, AST 20, ALT 29, Alkaline Phosphatase 95, Troponin I < 0.01, Total Protein 6.8, Albumin 4.5, Globulin 2.3, Albumin/Globulin Ratio 2.0, PT 11.1, INR 1.02, APTT 26, CBC w Diff NO MAN DIFF REQ, RBC 4.51, MCV 86.1, MCH 30.1, MCHC 35.0, RDW 13.8, MPV 9.2, Gran % 68.1, Lymphocytes % 23.5, Monocytes % 5.3, Eosinophils % 2.9, Basophils % 0.2, Absolute Granulocytes 5.8, Absolute Lymphocytes 2.0, Absolute Monocytes 0.5, Absolute Eosinophils 0.2, Absolute Basophils 0, Serum Alcohol < 10.0 Diagnostic Imaging: Viewed by Me: Radiology Read, CT Scan. Discussed w/RAD: Radiology Read, CT Scan. Radiology Impression: PATIENT: YANELY PRESENT AGE: 57 PATIENT ACCOUNT NO: [id number] : 62 LOCATION: [facility] ORDERING PHYSICIAN: Jagdeep RAY SERVICE DATE: 01/05/18 EXAM TYPE: CAT - CT HEAD WO IV CONTRAST EXAMINATION: CT HEAD WITHOUT CONTRAST CLINICAL INFORMATION: Altered mental status. COMPARISON: CT head 02/28/2017. TECHNIQUE: Contiguous axial imaging was performed from the skull base to vertex without intravenous administration of contrast. DLP: 626.51 mGy-cm FINDINGS: There are numerous foci of hypoattenuation within the periventricular white matter and basal ganglia that remain grossly unchanged when compared to the previous examination from 02/28/2017. Bernal-white matter differentiation is otherwise grossly preserved. No acute intracranial hemorrhage or abnormal extra-axial collection. No intracranial mass effect or midline shift. No abnormal extra axial collection. Lateral and third ventricles are proportionate to the subarachnoid spaces. No hydrocephalus. The calvarium and skull base are intact. Mastoid air cells and middle ear cavities are well-aerated. Visualized paranasal sinuses are well-aerated. IMPRESSION: Stable examination with numerous chronic changes within the periventricular white matter. Grossly no evidence of acute territorial infarct or hemorrhage. DICTATED BY: Rolan Duron MD DATE/TIME DICTATED:01/05/182317 RELIEF DRILLER:LOUIS DATE/TIME TRANSCRIBED:2317 CONFIDENTIAL, DO NOT COPY WITHOUT APPROPRIATE AUTHORIZATION. < Electronically signed in Other Vendor System> SIGNED BY: Rolan Duron MD 01/05/18 2134, PATIENT: YANELYDECEMBER PRESENT AGE : 57 PATIENT ACCOUNT NO: [id number] : 62 LOCATION: [facility] ORDERING PHYSICIAN: Jagdeep RAY SERVICE DATE: 01/05/18 EXAM TYPE: RAD - XRY-PORTABLE CHEST XRAY EXAMINATION: XR PORTABLE CHEST CLINICAL INFORMATION: Shortness of breath. COMPARISON: Chest radiograph 06/03/2017. TECHNIQUE: Portable frontal view of the chest was obtained. FINDINGS: Lungs are well- expanded. No focal consolidative disease, pleural effusion, or pneumothorax. The cardiac silhouette and upper mediastinal contours are normal. No acute osseous finding. IMPRESSION: Unremarkable chest radiograph. No consolidative disease or effusion. DICTATED BY: Rolan Duron MD DATE/TIME DICTATED:01/05/182255 RELIEF DRILLER:LOUIS DATE/TIME TRANSCRIBED:01/05/182255 CONFIDENTIAL, DO NOT COPY WITHOUT APPROPRIATE AUTHORIZATION. <Electronically signed in Other Vendor System> SIGNED BY: Rolan Duron MD 01/05/182299 Initial ED EKG: normal sinus rhythm, rate (76) (Jagdeep Pritchett) Departure Departure Disposition: STILL A PATIENT Condition: Stable Clinical Impression Primary Impression: Exacerbation of multiple sclerosis Referrals: Emily Holly APRN (PCP/Family) Departure Forms: Customer Survey General Discharge Information (Jagdeep Pritchett) Admission Note Spoke With: Franklin FREDERICK,Rito Documentation of Exam: Documentation of any treatments & extenuating circumstances including Concerns Regarding Discharge (functional status, medication knowledge or non-compliance, living conditions, etc.) that warrant an admission rather than observation: [ Patient to be admitted to general medicine for an MS exacerbation. She will require pulsatile steroids. Dr. FLORES will see her in the morning.] PA/ACCOUNT ASSOCIATE Co-Sign Statement Statement: ED Attending supervision documentation- [X] I saw and evaluated the patient. I have also reviewed all the pertinent lab results and diagnostic results. I agree with the findings and the plan of care as documented in the PA's/ACCOUNT ASSOCIATE's documentation. [X] I have reviewed the ED Record and agree with the PA's/ACCOUNT ASSOCIATE's documentation. [] Additions or exceptions (if any) to the PAs/ACCOUNT ASSOCIATE's note and plan are summarized below: [SEE ABOVE] (Radha FREDERICK,Praneeth Rodriguez)
[2018-01-05 22:18] LABS: ABSOLUTE BASOPHIL COUNT 0 /CUMM (0.0-0.2); ABSOLUTE EOSINOPHIL COUNT 0.2 /CUMM (0.0-0.7); ABSOLUTE GRANULOCYTE CT 5.8 /CUMM (1.4-6.5); ABSOLUTE MONOCYTE COUNT 0.5 /CUMM (0.10-0.60); BASOPHIL % 0.2 % (0.0-2.0); EOSINOPHIL % 2.9 % (0-5); GRANULOCYTE % 68.1 % (42.2-75.2); HEMATOCRIT 38.9 % (37-47); MEAN CORPUSCULAR HGB 30.1 PG (27.0-31.0); MEAN CORPUSCULAR VOLUME 86.1 FL (81.0-99.0); MEAN PLATELET VOLUME 9.2 FL (7.4-10.4); PLATELET COUNT 219 /CUMM (130-400); RBC DISTRIBUTION WIDTH 13.8 % (11.5-14.5); RED BLOOD CELL CT 4.51 /CUMM (4.20-5.40); WHITE BLOOD CELL COUNT 8.5 /CUMM (4.8-10.8)
[2018-01-05 22:27] LABS: PT 11.1 SEC (9.4-12.5); PTT 26 SEC (25-37)
--- NOTE | 2018-01-05 23:00 | RADIOLOGY REPORT ---
EXAMINATION: XR PORTABLE CHEST CLINICAL INFORMATION: Shortness of breath. COMPARISON: Chest radiograph 06/03/2017. TECHNIQUE: Portable frontal view of the chest was obtained. FINDINGS: Lungs are well-expanded. No focal consolidative disease, pleural effusion, or pneumothorax. The cardiac silhouette and upper mediastinal contours are normal. No acute osseous finding. IMPRESSION: Unremarkable chest radiograph. No consolidative disease or effusion.
--- NOTE | 2018-01-05 23:24 | CT SCAN REPORT ---
EXAMINATION: CT HEAD WITHOUT CONTRAST CLINICAL INFORMATION: Altered mental status. COMPARISON: CT head 02/28/2017. TECHNIQUE: Contiguous axial imaging was performed from the skull base to vertex without intravenous administration of contrast. DLP: 626.51 mGy-cm FINDINGS: There are numerous foci of hypoattenuation within the periventricular white matter and basal ganglia that remain grossly unchanged when compared to the previous examination from 02/28/2017. Bernal-white matter differentiation is otherwise grossly preserved. No acute intracranial hemorrhage or abnormal extra-axial collection. No intracranial mass effect or midline shift. No abnormal extra axial collection. Lateral and third ventricles are proportionate to the subarachnoid spaces. No hydrocephalus. The calvarium and skull base are intact. Mastoid air cells and middle ear cavities are well-aerated. Visualized paranasal sinuses are well-aerated. IMPRESSION: Stable examination with numerous chronic changes within the periventricular white matter. Grossly no evidence of acute territorial infarct or hemorrhage.
[2018-01-06] MEDS ORDERED: VITAMIN D250000 UNIT PO (00:07)
--- NOTE | 2018-01-06 01:40 | History & Physical ---
Krishna FREDERICK,Shalini 01/06/18 0140: General Information and HPI MD Statement: I have seen and personally examined YANELY,DECEMBER and documented this H&P. The patient is a 57 year old F who presented with a patient stated chief complaint of [lower extremity weakness]. Source of Information: patient, family, old records Exam Limitations: confusion, poor historian History of Present Illness: Patient is a 57-year-old female with past medical history significant for relapsing multiple sclerosis, hypertension, diabetes, diabetic neuropathy, hyperlipidemia, depression and anxiety, previous admission to [facility] in May 2017 for acute MS flare presenting this admission with similar symptoms of bilateral lower extremity weakness. History was limited due to patient's clinical condition. Patient was lethargic during time of interview. Patient's mother was contacted and provided much of the history. States that patient was at her friend's house when she received a call stating that the patient had multiple episodes of emesis, was not talking properly and slurring her speech and was shaking. Patient states that she believes she fell down due to lower extremity weakness. Patient states that she has had difficulty walking due to the increased weakness. Patient's mother reports that she typically uses a cane and sometimes a walker however reports that patient did not take either to her friend's house. Patient denies any urinary symptoms, visual disturbances, difficulty swallowing. Patient's mother states that she has not had any trouble urinating in the past 6 months. Reports patient was previously getting IV infusions 1 year prior to admission and has been seeing Dr. Avila for the MS. however reports that patient has not seen him in quite some time. Patient reports smoking greater than one pack per day. Patient initially denied marijuana or cocaine use however later recanted and stated that she has been using marijuana in the past 2 days. Patient's mother reports that she is a heavy drinker however does not believe that she has had anything to drink this month. Reports that she cannot be sure however. Allergies/Medications Allergies: Coded Allergies: NO KNOWN ALLERGIES (04/07/12) Home Med list Alprazolam 0.25 MG TABLET 1 TAB PO DAILY PRN ANXIETY (Reported) Atorvastatin Calcium 10 MG TABLET 1 TAB PO DAILY CHOLESTEROL (Reported) Baclofen 10 MG TABLET 1 TAB PO TID PRN CRAMPING (Reported) Citalopram Hydrobromide (Citalopram HBr) 20 MG TABLET 1.5 TAB PO DAILY MENTAL HEALTH (Reported) Diphenoxylate HCl/Atropine (Lomotil 2.5-0.025 MG Tablet) 2.5 MG-0.025 MG TABLET 1 TAB PO QHS INCONTINENCE (Reported) Ergocalciferol (Vitamin D2) (Vitamin D2) 50,000 UNIT CAPSULE 1 CAP PO QW VITAMIN SUPPORT (Reported) Gabapentin 400 MG CAPSULE 1 CAP PO Q4 MS (Reported) Insulin Aspart, Recombinant (Novolog Flexpen) 100 UNIT/ML INSULN.PEN 10 UNITS SC TIDAC DM (Reported) Insulin Glargine,Hum.rec.anlog (Lantus Solostar) 100 UNIT/ML (3 ML) INSULN.PEN 13 UNIT SC QPM DIABETES (Reported) Linagliptin (Tradjenta) 5 MG TABLET 1 TAB PO DAILY DM (Reported) Lisinopril 10 MG TABLET 1 TAB PO DAILY BP (Reported) Oxybutynin Chloride 5 MG TABLET 1 TAB PO BID BLADDER (Reported) Tramadol HCl 50 MG TABLET 1 TAB PO BID PAIN (Reported) Past History Travel History Traveled to [place] past 21 day No Medical History Neurological: multiple sclerosis, peripheral neuropathy EENT: NONE Cardiovascular: hypertension, hyperlipidemia Respiratory: NONE Gastrointestinal: NONE Hepatic: NONE Renal: NONE Musculoskeletal: NONE Psychiatric: anxiety, depression Endocrine: diabetes Blood Disorders: NONE Cancer(s): NONE WET ROASTER/Reproductive: NONE History of MRSA: No History of VRE: No History of CDIFF: No Influenza Vaccine: 05/28/17 Surgical History Surgical History: HYSTERECTOMY 28 YRS AGO Past Family/Social History Psychosocial History Who Do You Live With? parent Services at Home: None Primary Language: Hungarian ETOH Use: denies use Functional Ability ADLs Independent: dressing, eating, toileting, bathing. Ambulation: independent IADLs Independent: shopping, housework, finances, food prep, telephone, transportation , medication admin. Review of Systems Review of Systems Constitutional: Reports: see HPI, chills, weakness. EENTM: Reports: no symptoms. Cardiovascular: Reports: see HPI. Respiratory: Reports: no symptoms. GI: Reports: see HPI. Genitourinary: Reports: no symptoms. Musculoskeletal: Reports: no symptoms. Skin: Reports: no symptoms. Neurological/Psychological: Reports: see HPI. Hematologic/Endocrine: Reports: no symptoms. Exam & Diagnostic Data Last 24 Hrs of Vital Signs/I&O Vital Signs Date Time Temp Pulse Resp B/P B/P Pulse O2 O2 Flow FiO2 Mean Ox Delivery Rate 01/06 0220 97.7 68 20 118/72 95 Room Air 01/06 0129 68 20 123/62 97 Room Air 01/06 0006 97.6 72 20 115/60 97 Room Air 01/05 2156 97.6 81 20 172/88 91 Room Air Intake & Output 01/06 0800 01/06 0000 01/05 1600 Intake Total 1000 Output Total Balance 1000 Intake, IV 1000 Patient 134 lb 160 lb Weight Weight Bed scale Estimated Measurement Method Physical Exam General Appearance No Acute Distress, drowsy but arousable to verbal stimuli Skin Temp/Moisture Exam: Warm/Dry Sepsis Skin Exam (color): Normal for Ethnicity HEENT Atraumatic, PERRLA, EOMI Cardiovascular Regular Rate, Normal S1, Normal S2, No Murmurs Lungs Clear to Auscultation, Normal Air Movement Abdomen Normal Bowel Sounds, Soft, No Tenderness, No Hepatospenomegaly, No Masses Neurological Normal Tone, Sensation Intact, Cranial Nerves 3-12 NL, Reflexes 2+, slurred speech, drowsy, strength 4/5 in left lower extremity Extremities No Clubbing, No Cyanosis, No Edema, Normal Pulses, No Tenderness/ Swelling Last 24 Hrs of Labs/Carlos: Laboratory Tests 01/06/18 0114: Lactic Acid 1.5 01/05/18 2352: Urine Opiates Screen < 100, Methadone Screen 61, Barbiturate Screen < 60, Ur Phencyclidine Scrn < 6.00, Amphetamines Screen 110, U Benzodiazepines Scrn < 85, Urine Cocaine Screen < 50, Urine Cannabis Screen > 80.00 H, Urine Color YEL, Urine Clarity CLEAR, Urine pH 6.0, Ur Specific [place] 1.025, Urine Protein NEG, Urine Ketones NEG, Urine Nitrite NEG, Urine Bilirubin NEG, Urine Urobilinogen 0.2, Ur Leukocyte Esterase NEG, Ur Microscopic EXAM NOT REQUIRED, Urine Hemoglobin NEG, Urine Glucose >=1000 H 01/05/18 2205: Anion Gap 13, Estimated GFR > 60, BUN/Creatinine Ratio 28.3 H, Glucose 335 H, Lactic Acid 2.1, Calcium 9.5, Phosphorus 3.9, Magnesium 1.5 L, Total Bilirubin 0.9, AST 20, ALT 29, Alkaline Phosphatase 95, Troponin I < 0.01, Total Protein 6.8, Albumin 4.5, Globulin 2.3, Albumin/Globulin Ratio 2.0, TSH 1.770, Free T4 1.19, Prolactin 18.9 H, PT 11.1, INR 1.02, APTT 26, CBC w Diff NO MAN DIFF REQ, RBC 4.51, MCV 86.1, MCH 30.1, MCHC 35.0, RDW 13.8, MPV 9.2, Gran % 68.1, Lymphocytes % 23.5, Monocytes % 5.3, Eosinophils % 2.9, Basophils % 0.2, Absolute Granulocytes 5.8, Absolute Lymphocytes 2.0, Absolute Monocytes 0.5, Absolute Eosinophils 0.2, Absolute Basophils 0, Serum Alcohol < 10.0 Assessment/Plan Assessment: Patient is a 57-year-old female with past medical history significant for multiple sclerosis continue this admission with what appears to be symptoms similar to move flare. Patient's urine tox is positive for cannabis. Patient will be admitted to general medicine for management of the followin. AMS, Toxic encephalopathy 2/2 to drug intoxication (marijuana, alcohol use) 2. Increased lower extremity weakness and and cage instability, likely multiple sclerosis flare 3. Chronic conditions: Diabetes, hypertension, hyperlipidemia, diabetic neuropathy, anxiety and depression Plan: [facility] Nothing by mouth, formal swallow evaluation in the a.m. PT/OT consult Neurology consult- ED spoke to patient's neurologist, Dr. Avila who will see patient Neuro checks every 4 hours Aspiration, fall risk, seizure precautions IV Solu-Medrol 1000 mg daily x 5 days Insulin Levemir 6 units twice a day Insulin sliding scale 3 times a day/daily at bedtime Confirmed patient's home medications CIWA protocol Diet: Nothing by mouth pending swallow eval Code: Full code DVT prophylaxis: Lovenox, Alps As Ranked By This Provider Problem List: 1. Altered mental status, unspecified 2. Multiple sclerosis exacerbation Core Measures/Misc (05/25) Acute Coronary Syndrome ACS Diagnosis: No Congestive Heart Failure Congestive Heart Failure Diagnosis No Cerebrovascular Accident CVA/TIA Diagnosis: No VTE (View Protocol) VTE Risk Factors Age>40 No Mechanical VTE Prophylaxis d/t N/A MechProphylax Ordered No VTE Pharm Prophylaxis d/t NA PharmProphylax ordered Sepsis (View protocol) Sepsis Present: No Jim Cole 01/06/18 0158: Resident Review Statement Resident Statement: examined this patient, discussed with international specialist, agreed with international specialist, discussed with family, reviewed EMR data (avail), discussed with nursing , discussed with case mgmt, reviewed images, amended to note Other Findings: This is 57 year-old Female with medical history of HTN, DM type 2 on insulin with neuropathy, relapsing progressive multiple sclerosis currently not on treatment due to insurance issues HLD, depression and anxiety, HLD. She presented to the emergency department for further evaluation of nausea vomiting increased weakness. Patient poor historian, we contacted her mother who provided part of the history. States that patient was at her friend's house when she received a call stating that the patient had multiple episodes of emesis, was not talking properly and slurring her speech and was shaking. Patient states that she believes she fell down due to lower extremity weakness. Patient states that she has had difficulty walking due to the increased weakness. Patient's mother reports that she typically uses a cane and sometimes a walker however reports that patient did not take either to her friend's house. Patient was started on thousand milligrams of IV Solu-Medrol in the emergency department, she also received 0.[address] scan of the head was negative for any acute pathological process. Physical examination, lab and imaging as above. Problem list: -Altered mental status that could be due to encephalopathy secondary to drug intoxication -Multiple sclerosis flareup -Generalized weakness with difficulty ambulation due to above -Noncompliance with her home medication Plan: -Admit patient to general medicine floor -Vitals every shift, high risk of fall, aspiration precaution, NIH check -Continue thousand of IV Solu-Medrol daily for a total of 5 doses -Neurology consultation in a.m. -Physical therapy consultation in a.m. -Accu-Chek, insulin sliding scale -Keep the patient nothing by mouth pending swallow eval in a.m. -Start the patient on insulin level units twice daily -CIWA protocol monitoring hold off any Ativan for now. -Please confirm patient home medication -Pain pathway -DVT prophylaxis subcutaneous Lovenox -Full code Franklin FREDERICK, [facility] 01/06/18 0540: Attending MD Review Statement Attending Statement Attending Statement: examined this patient, discuss w/resident/PA/TOOL MAKER APPRENTICE, agreed w/resident/PA/TOOL MAKER APPRENTICE, reviewed images, amended to note Attending Assessment/Plan: 57 yo F smoker with h/o polysubstance abuse (cocaine, marijuana) HTN, HLD, insulin dependent diabetes c/b neuropathy, multiple sclerosis (diagnosed 2012) was cytoxan/rituxan, but noncompliant with therapy due to insurance issues, anxiety, depression, is brought in to ER from a friend's house for evaluation of nausea, vomiting and increasing weakness with gait instability. On ER arrival, patient was alert and oriented, however she then was noticed to be lethargic but arousable to verbal stimuli. She received narcan without effect. Patient was a limited historian. History as provided by mother was that patient was a friend's house where she suddenly developed nonbloody emesis, with slurring of speech and probably fell due to her leg weakness. Over the past 6 months her lower extremity weakness has increased resulting in being off-balance and is unable to ambulate. She uses a a cane or walker. There is not c/o urinary incontinence or vision changes. Mother is aware of patient drinking alcohol and smoking but not about her marijuana use. Patient states that we should not inform mother about her marijuana use. Of note, patient has not been following up with Dr. Avila. She also does not take her medications such as insulin as prescribed. Vital stable. Exam as above. Patient is lethargic, keeps her eyes closed, speech is slurred but understandable for most part, left side is slightly weaker than right, power 3/5 all extremities. Labs suggest Na 132, glucose 335, lactic acid 2.1, Mag 1.5, trop neg, borderline prolactin, normal TSH, free T4. UA clear, Urine tox positive for cannabis. Alcohol <10. CXR: no effusion or consolidation. EKG: sinus rhythm, TWI V4-6, old inferior infarct. CT head: chronic changes within periventricular white matter. No acute pathology. Assessment and plan: 1. Gait instability, increasing lower extremity weakness suggestive of acute flare of multiple sclerosis 2. Altered mentation, toxic encephalopathy, nausea/vomiting due to ?substance use, rule out seizure or infection 3. Insulin dependent diabetes with hyperglycemia, noncompliance 4. Hypomagnesemia, pseudohyponatremia 5. Essential hypertension - Admit to General medicine - Fall and aspiration precautions - Neurochecks Q2 - IV solumedrol 1 gm daily for 5 days - Dr. Avila to consult (ER spoke with him) - PT, OT and speech therapy - NPO until mentation improves - Check ammonia level - CT head is not sugestive of acute changes - If mentation does not improve, consider Neuro evaluation - If febrile or develops leukocytosis with altered mentation, consider lumbar puncture - Hold all sedative oral meds such as gabapentin, baclofen. - [facility] protocol - Replete electrolytes - Watch for seizures - Insulin NPO SS, check HbA1c DVT ppx Lovenox. Full code.
[2018-01-06 02:20] VITALS: BP 118/72
--- NOTE | 2018-01-06 05:41 | Admission Certification ---
Admission Certification Certification Statement - As attending physician, I certify that at the time of - admission, based on clinical presentation, severity of - symptoms, need for further diagnostic testing and - therapeutic interventions, and risk of adverse outcomes - without in-hospital treatment, in my clinical assessment, - this patient requires an acute hospital stay for a minimum - of two nights or longer. I have also considered psychsocial - factors such as support system, advanced age, financial - issues, cognitive issues, and failed out-patient treatments, - past re-admission history, safety of patient, and lack of - compliance as applicable. Specific rationale supporting this admission is: Altered mentation, toxic encephalopathy, MS exacerbation.
[2018-01-06 06:52] VITALS: BP 110/66
[2018-01-06 08:37] LABS: ABSOLUTE BASOPHIL COUNT 0 /CUMM (0.0-0.2); ABSOLUTE EOSINOPHIL COUNT 0 /CUMM (0.0-0.7); ABSOLUTE GRANULOCYTE CT 10.4 /CUMM (1.4-6.5); ABSOLUTE LYMPH COUNT 0.9 /CUMM (1.2-3.4); ABSOLUTE MONOCYTE COUNT 0 /CUMM (0.10-0.60); BASOPHIL % 0.2 % (0.0-2.0); EOSINOPHIL % 0 % (0-5); HEMATOCRIT 39.2 % (37-47); MEAN CORPUSCULAR HGB 29.1 PG (27.0-31.0); MEAN CORPUSCULAR HGB CONC 33.6 G/DL (33.0-37.0); MEAN CORPUSCULAR VOLUME 86.8 FL (81.0-99.0); MEAN PLATELET VOLUME 9.3 FL (7.4-10.4); PLATELET COUNT 200 /CUMM (130-400); RED BLOOD CELL CT 4.51 /CUMM (4.20-5.40)
[2018-01-06 10:19] LABS: WHITE BLOOD CELL COUNT 11.3 /CUMM (4.8-10.8)
--- NOTE | 2018-01-06 10:43 | PN- Att Addend ---
Attending Addendum Attending Brief Note Patient seen and examined. Resting comfortably not in acute distress. She is alert and oriented 3. She is conversant appropriately. Speech is intact. No difficulty understanding the patient. She denies any pain. She complains of lower extremity weakness. She reports left hip pain which is new onset of recently. Denies any trauma. She reports left shoulder pain. She reports that this is chronic. She reports limitation in range of movement of the shoulder. She states that this is chronic lasting several months. Vital Signs Date Time Temp Pulse Resp B/P B/P Pulse O2 O2 Flow FiO2 Mean Ox Delivery Rate 01/06 0652 97.7 64 20 110/66 94 Room Air 01/06 0220 97.7 68 20 118/72 95 Room Air 01/06 0129 68 20 123/62 97 Room Air 01/06 0006 97.6 72 20 115/60 97 Room Air 01/05 2156 97.6 81 20 172/88 91 Room Air General appearance: Well-developed and not in any acute distress. Neurologic: Cranial nerves II through XII intact. Power is 5/5 right upper and lower extremities. Power is 4/5 left upper and lower extremities. Limitation is secondary to pain in the left hip and left shoulder. Skin: Intact. Problems: 1. Multiple sclerosis exacerbation. 2. Left hip pain. 3. Chronic left shoulder pain. 4. Insulin-dependent diabetes mellitus. Plan: -Continue systemic steroid therapy with tramadol for her MS exacerbation. -Obtain x-ray of the for evaluation of hip pain. -Obtain x-ray of the left shoulder as well. She has not had any previous imaging done here to explain the chronic pain. If negative she should follow-up with orthopedic service as an outpatient. She will likely need an outpatient MRI to rule out rotator cuff injury if the x-ray is negative. -Leukocytosis likely secondary to steroid therapy. Repeat serum chemistry and CBC in a.m. only if there is a change in her clinical status. -Continue insulin regimen with sliding scale coverage. Monitor glucose levels closely while she is on steroid therapy.
[2018-01-06 14:34] VITALS: BP 110/70; BP 110/76
--- NOTE | 2018-01-06 19:08 | RADIOLOGY REPORT ---
EXAMINATION: XR SHOULDER, LEFT XR HIP, LEFT CLINICAL INFORMATION: Shoulder pain, chronic. Rule out bony pathology. Limited range of motion. Chronic hip pain with motion. Presumptive diagnosis of osteoarthritis. COMPARISON: None TECHNIQUE: 7 views of the left shoulder. 2 views of the left hip. FINDINGS: Left shoulder: Diffuse osteopenia. No acute fracture or dislocation. Glenohumeral joint intact and unremarkable. Mild degenerative change at the acromioclavicular joint. Some spurring and cystic changes seen at the greater tuberosity of the humeral head. The included left ribs are unremarkable. There is a oval 3.5 x 2.3 cm soft tissue density mass seen adjacent to the proximal humeral shaft on some of the images, for uncertain etiology. Left hip: Diffuse osteopenia. No acute fracture or dislocation. Minimal degenerative change with acetabular roof spurring and cystic change seen. No joint calcifications seen. Included left sacroiliac joint and pubic symphysis unremarkable. IMPRESSION: 1. No acute fracture of the left shoulder or left hip. 2. Mild degenerative changes in the left acromioclavicular joint and the left hip joint. 3. Ovoid soft tissue density mass seen in the soft tissues adjacent to the proximal left humerus. This is of uncertain etiology. Consider further assessment with MRI scan for further assessment.
[2018-01-06 22:30] VITALS: BP 136/56
[2018-01-07 00:45] VITALS: BP 126/56
[2018-01-07 06:50] VITALS: BP 120/76
--- NOTE | 2018-01-07 07:07 | PN- Housestaff ---
Zenobia Hernandez MD,[facility] 01/07/18 0707: Subjective Follow-up For: Altered mental status Weakness Subjective: Patient visited today, was sitting in bed comfortably in no acute distress, was alert and oriented. Patient was significantly improved in terms of orientation. Improved weakness of lower extremities No fever or chills, no shortness of breathing, no chest pain, no other events. Patient's neurologist was contacted and requested for a consult. Review of Systems Constitutional: Reports: see HPI. Objective Last 24 Hrs of Vital Signs/I&O Vital Signs Date Time Temp Pulse Resp B/P B/P Pulse O2 O2 Flow FiO2 Mean Ox Delivery Rate 01/07 1433 98.7 75 20 110/80 94 01/07 0650 98.7 79 20 120/76 94 Room Air 01/07 0045 99.5 82 18 126/56 / 0000 Room Air 01/06 2230 99.5 82 18 136/56 92 Intake & Output 01/07 1600 01/07 0800 01/07 0000 Intake Total 1488 290 Output Total Balance 1488 290 Intake, IV 1008 10 Intake, Oral 480 280 Number 0 Bowel Movements Patient 136 lb 137 lb Weight Physical Exam General Appearance: Alert, Oriented X3, Cooperative, No Acute Distress Skin: No Significant Lesion Skin Temp/Moisture Exam: Warm/Dry Sepsis Skin Exam (color): Normal for Ethnicity HEENT: Atraumatic, EOMI Cardiovascular: Normal S1, Normal S2 Lungs: Clear to Auscultation Abdomen: Soft, No Tenderness Neurological: upper extremity normal, motion of L UE is limited due to pain in shuolder, R UE normal R LE normal L LE 4-5/5 Extremities: No Edema Current Medications: Current Medications Sig/Hilda Start time Last Medication Dose Route Stop Time Status Admin Acetaminophen 650 MG Q6P PRN 01/06 0315 AC PO Alprazolam 0.25 MG DAILY NEEDED PRN 01/07 1030 AC PO 01/14 1029 Baclofen 10 MG TID PRN 01/07 1030 AC PO Enoxaparin Sodium 40 MG DAILY 01/06 0900 AC 01/07 SC 0954 Ibuprofen 600 MG Q8P PRN 01/06 0315 AC PO Insulin Aspart 0 TIDAC 01/07 1200 AC 01/07 SC 1139 Insulin Aspart 0 TIDAC 01/07 0800 CAN SC Insulin Aspart 0 TIDAC 01/06 1815 DC 01/07 SC 0812 Insulin Detemir 4 UNITS ONCE ONE 01/07 1030 DC 01/07 SC 01/07 1031 1137 Insulin Detemir 10 UNITS BID 01/07 0900 AC SC Insulin Detemir 6 UNITS BID 01/06 0900 DC 01/07 SC 0812 Insulin Human Regular 0 Q6 01/06 0144 DC 01/06 SC 1140 Melatonin 3 MG AT BEDTIME PRN 01/06 2145 AC 01/06 PO 2149 Methylprednisolone 1,000 MG DAILY 01/06 0900 AC 01/07 Dextrose/Water 1,000 ML IV 0952 Patient Medication 1 ED ONE ONE 01/07 1115 DC 01/07 Teaching ED 01/07 1116 1140 Senna/Docusate Sodium 2 TAB DAILY NEEDED PRN 01/07 1030 AC PO Tramadol HCl 50 MG Q12P PRN 01/07 1030 AC PO Assessment/Plan Assessment: Patient is a 57-year-old female with past medical history significant for multiple sclerosis continue this admission with what appears to be symptoms similar to move flare. Patient's urine tox is positive for cannabis. Patient was admitted to general medicine for management of the followin. AMS, Toxic encephalopathy 2/2 to drug intoxication (marijuana, alcohol use) 2. Increased lower extremity weakness and and cage instability, likely multiple sclerosis flare 3. Chronic conditions: Diabetes, hypertension, hyperlipidemia, diabetic neuropathy, anxiety and depression Plan: - Continue admission to general med - Started diabetic diet, regular/thin, passed swallow evaluation - PT: recommeded home PT - Neurology consult- Dr. Avila who will see patient - IV Solu-Medrol 1000 mg daily x 3 days - Insulin Levemir adjusted - Insulin sliding scale 3 times a day/daily at bedtime Diabetic diet Code: Full code DVT prophylaxis: Lovenox, Alps Problem List: 1. Altered mental status, unspecified 2. Multiple sclerosis exacerbation Pain Ratin Pain Location: none resumed home pain meidcation Pain Goal: Pain 4 or less Pain Plan: continue current plan, resumed home medciation. Tomorrow's Labs & Rationales: None Sosa Ruby MD 01/07/18 1020: Attending MD Review Statement Attending Statement Attending MD Statement: examined this patient, discuss w/resident/PA/SPOUT LINER, agreed w/resident/PA/SPOUT LINER, reviewed EMR data (avail), discussed with nursing, discussed with case mgmt, amended to note Attending Assessment/Plan: Patient seen and examined. She reports feeling much better this morning. She reports being able to participate in physical therapy yesterday. She continues complain of left hip pain and left shoulder discomfort. Imaging studies done yesterday shows no acute fracture of the left hip. She has mild degenerative joint disease. She has mild degenerative joint disease of the left acromioclavicular joint. Is an obvious soft tissue mass noted adjacent to the proximal left humerus. Etiology is uncertain. On examination she is alert oriented 3. She has diminished strength in the left upper lower extremities which is chronic and related to the pain in the joints. No palpable mass on examination left upper arm or shoulder joint. Recommendations: -Continue systemic steroid therapy. She is due to complete her steroid dose on Friday. -Patient's glucose levels are elevated likely secondary to steroid use. Recommend increasing her Levemir insulin to 10 units twice a day. She is normally on 12 units once a day of Lantus at home. -Continue sliding-scale coverage. -Obtain MRI of the left humerus to further evaluate soft tissue mass noted on x- ray. -Physical therapy as tolerated per
--- NOTE | 2018-01-07 13:57 | MRI REPORT ---
EXAMINATION: MR SHOULDER WITHOUT CONTRAST, LEFT CLINICAL INFORMATION: Chronic shoulder pain. COMPARISON: Radiograph dated 01/06/2018. TECHNIQUE: MRI of the shoulder without contrast is performed using routine sequences. Examination is slightly limited by patient motion. FINDINGS: ROTATOR CUFF: A partial-thickness articular-sided tear of the supraspinatus tendon measures 1.8 cm AP. There is interstitial delamination with propagation of the residual component of the tear by 2 cm medial to the insertion. The rotator cable appears displaced medially from the typical location at the apex of the humeral head. The supraspinatus tear involves at least one-half of the tendon thickness and may involve up to two-thirds of the tendon thickness. The bursal-sided fibers appear intact. Given the presence of a small amount of subacromial subdeltoid bursal fluid, punctate full-thickness perforation of the supraspinatus tendon is possible. There is mild infraspinatus tendinosis. Subscapularis is normal. No muscle atrophy or fatty infiltration. As seen on image 16/29 of series 5, there is mild edema signal along the anterior margin of the deltoid muscle distally near its insertion, likely due to a contusion or mild strain. No tears are identified. BICEPS: Normal. CORACOACROMIAL ARCH: The undersurface of the acromion is minimally curved with no subacromial spur. Jknc-[id number] acromioclavicular osteoarthritis. LABRUM/CAPSULE: Evaluation of the superior labrum is somewhat limited due to motion artifact. Superior labral fraying is possible. No discrete tears are identified. Joint capsule at the axillary pouch is normal in thickness without significant edema signal. GLENOHUMERAL JOINT/MARROW: Subchondral edema signal and full-thickness chondral fissuring are present at the superior margin of the glenoid. There is more mild chondral thinning at the humeral head. Tiny marginal osteophytes are likely present. Cortical irregularity and subcortical cystic changes are present at the anterior aspect of the greater tuberosity, reactive to the overlying rotator cuff tendinosis. The imaged portion of the humeral shaft is normal in signal intensity without stress reaction or fracture. IMPRESSION: 1. A 1.8 x 2 cm partial-thickness articular-sided insertional tear of the supraspinatus tendon. The majority of this tear involves approximately one-half of the tendon thickness, though areas of greater tendon thickness involvement or full-thickness perforation are possible. No muscle atrophy. 2. Mild subacromial subdeltoid bursitis. 3. Pcyz-hn-cvphllba acromioclavicular osteoarthritis and mild glenohumeral osteoarthritis. 4. Focal edema signal within the deltoid muscle along its anterior margin distally, possibly due to a contusion or strain.
[2018-01-07 14:33] VITALS: BP 110/80
[2018-01-07 18:00] VITALS: BP 110/80
[2018-01-07 22:00] VITALS: BP 120/80
[2018-01-07 22:26] VITALS: BP 120/80
[2018-01-08 02:00] VITALS: BP 130/80
[2018-01-08 05:41] VITALS: BP 134/84
[2018-01-08 06:00] VITALS: BP 134/84
--- NOTE | 2018-01-08 08:00 | PN- Housestaff ---
Zenobia Hernandez MD,Ami 01/08/18 0800: Subjective Follow-up For: Altered mental status Weakness Subjective: Patient visited today, was lying in bed comfortably in no acute distress, was alert and oriented. Reported improved weakness. No fever or chills, no shortness of breathing, no chest pain, no other events. Pain medications started yesterday, never asked. Patient was able to walk without assisstance. MRI shoulder was done to further evaluate the mass in xray, which showed RC tear. In secondary review it was decided to be artifact. Patient stable to be discharged per neuro. Review of Systems Constitutional: Reports: see HPI. Objective Last 24 Hrs of Vital Signs/I&O Vital Signs Date Time Temp Pulse Resp B/P B/P Pulse O2 O2 Flow FiO2 Mean Ox Delivery Rate 01/08 0600 98.1 69 20 134/84 05/03 0541 98.1 69 20 134/84 96 Room Air 05/ 0200 98.1 60 20 130/80 05/ 2226 98.1 69 20 120/80 93 Room Air / 2200 98.1 69 20 120/80 05/02 1800 98.7 75 20 110/80 05/02 1433 98.7 75 20 110/80 94 Intake & Output 01/08 1600 /03 0800 05 0000 Intake Total 130 600 Output Total 1100 650 Balance -970 -50 Intake, IV 10 Intake, Oral 120 600 Output, Urine 1100 650 Patient 130 lb Weight Physical Exam General Appearance: Alert, Oriented X3, Cooperative, No Acute Distress Skin Temp/Moisture Exam: Warm/Dry Sepsis Skin Exam (color): Normal for Ethnicity HEENT: Atraumatic, EOMI Cardiovascular: Normal S1, Normal S2 Lungs: Clear to Auscultation, Normal Air Movement Abdomen: Soft, No Tenderness Neurological: Normal Speech Extremities: No Edema Current Medications: Current Medications Sig/Hilda Start time Last Medication Dose Route Stop Time Status Admin Acetaminophen 650 MG Q6P PRN 01/06 0315 AC PO Alprazolam 0.25 MG DAILY NEEDED PRN 01/07 1030 AC PO 01/14 1029 Baclofen 10 MG TID PRN 01/07 1030 AC PO Enoxaparin Sodium 40 MG DAILY 01/06 0900 AC 01/08 VA 0947 Ibuprofen 600 MG .STK-MED ONE 05/02 2110 DC PO 01/07 2111 Ibuprofen 600 MG Q8P PRN 01/06 0315 AC 01/07 PO 2111 Insulin Aspart 0 TIDAC 01/07 1200 AC 01/08 SC 0914 Insulin Detemir 4 UNITS ONCE ONE 01/07 1030 DC 01/07 SC 01/07 1031 1137 Insulin Detemir 10 UNITS BID 01/07 0900 AC 01/08 SC 0914 Melatonin 3 MG AT BEDTIME PRN 01/06 2145 AC 01/06 PO 2149 Methylprednisolone 1,000 MG DAILY 01/06 09 AC 01/07 Dextrose/Water 1,000 ML IV 0952 Patient Medication 1 ED ONE ONE 01/07 1115 DC 01/07 Teaching ED 01/07 1116 1140 Senna/Docusate Sodium 2 TAB DAILY NEEDED PRN 01/07 1030 AC PO Tramadol HCl 50 MG Q12P PRN 01/07 1030 AC PO Assessment/Plan Assessment: Patient is a 57-year-old female presented with altered mental status and weakness Patient's urine tox was positive for cannabis. PMH: relapsing multiple sclerosis, hypertension, diabetes, diabetic neuropathy, hyperlipidemia, depression and anxiety Patient was admitted to general medicine for management of the following: AMS, Toxic encephalopathy 2/2 to drug intoxication (marijuana, alcohol use, narcotics or BDZ) Patient was admitted to general medicine floor, narcotics and benzodiazepines were held temporarily. Patient's mental condition Increased lower extremity weakness and and cage instability, likely multiple sclerosis flare Chronic conditions: Diabetes, hypertension, hyperlipidemia, diabetic neuropathy, anxiety and depression Plan: - Continue admission to general med - Started diabetic diet, regular/thin, passed swallow evaluation - PT: recommeded home PT - Neurology consult- Dr. Avila who will see patient - IV Solu-Medrol 1000 mg daily x 3 days - Insulin Levemir adjusted - Insulin sliding scale 3 times a day/daily at bedtime Diabetic diet Code: Full code DVT prophylaxis: Jaiden Fraire Problem List: 1. Multiple sclerosis 2. Shoulder pain Pain Ratin Pain Location: None Pain Goal: Pain 4 or less Pain Plan: Contniue current plan Tomorrow's Labs & Rationales: None Sosa Ruby MD 01/08/18 1111: Attending MD Review Statement Attending Statement Attending MD Statement: examined this patient, discuss w/resident/PA/POST COMMANDER, agreed w/resident/PA/POST COMMANDER, reviewed EMR data (avail), discussed with nursing, discussed with case mgmt, amended to note Attending Assessment/Plan: Patient seen and examined. Resting comfortably and not in any acute distress. No issues overnight reported by nursing staff. Nursing staff reports that patient's ambulation is improved significantly. She is ambulating without the need of any assistive device. Patient reports feeling much better this morning. She was seen by her neurologist yesterday. Recommendations are to complete dose of steroid therapy today and discharge patient home. Patient is to follow- up with him in the outpatient service tomorrow. Patient is in agreement with this plan. Her glucose levels have been elevated here while on steroid therapy. Will anticipate improvement of blood glucose levels once she is off systemic steroids.
--- NOTE | 2018-01-08 10:07 | Discharge Summary ---
Visit Information Visit Dates Admission Date: 01/05/18 Discharge Date: 01/08/18 Hospital Course Course Attending Physician: Sosa Ruby MD Primary Care Physician: [facility] Course: Patient is a 57-year-old female presented with altered mental status and weakness Patient's urine tox was positive for cannabis. PMH: relapsing multiple sclerosis, hypertension, diabetes, diabetic neuropathy, hyperlipidemia, depression and anxiety Patient was admitted to general medicine for management of the following: AMS, Toxic encephalopathy 2/2 to drug intoxication (marijuana, alcohol use, narcotics or BDZ) Increased lower extremity weakness and and cage instability, likely multiple sclerosis flare Patient was admitted to general medicine floor, narcotics and benzodiazepines were held temporarily. Patient's mental condition signifincatly improved. neurology service was consulted, IV solumedrol was administered. Based on neurology consult 3 doses were give. Patient reported improvement in weakness to her baseline. Patient was discharged with recommendations to follow with Neurologist as instructed. Chronic conditions: Diabetes, hypertension, hyperlipidemia, diabetic neuropathy, anxiety and depression: We continued home medications. Insuline dose was adjusted considering increase in BS due to solumedrol. Patient was stable to be discharged. Allergies: Coded Allergies: NO KNOWN ALLERGIES (04/07/12) Disposition Summary Disposition Principal Diagnosis: AMS, Toxic encephalopathy 2/2 to drug intoxication (marijuana, alcohol use, narcotics or BDZ) Additional Diagnosis: Increased lower extremity weakness and and cage instability, likely multiple sclerosis flare Discharge Disposition: home health services Discharge Instructions General Discharge Information Code Status: Full Code Patient's Diet: Diabetic Patient's Activity: As tolerated Follow-Up Instructions/Appts: Please follow with your PCP within one week of discharge. Please follow with your neurologist tomorrow as instructed. Please follow with the orthopedic surgeon as instructed for your shoulder pain. Medications at Discharge Discharge Medications: Continue taking these medications: Gabapentin (Gabapentin) 400 MG CAPSULE 1 Capsule ORAL Every 4 hours Qty = 180 Comments: Atorvastatin Calcium (Atorvastatin Calcium) 10 MG TABLET 1 Tablet ORAL DAILY Qty = 90 Comments: Oxybutynin Chloride (Oxybutynin Chloride) 5 MG TABLET 1 Tablet ORAL TWICE DAILY Qty = 60 Comments: Lisinopril (Lisinopril) 10 MG TABLET 1 Tablet ORAL DAILY Qty = 90 Linagliptin (Tradjenta) 5 MG TABLET 1 Tablet ORAL DAILY Qty = 90 Comments: Alprazolam (Alprazolam) 0.25 MG TABLET 1 Tablet ORAL DAILY as needed for ANXIETY Qty = 90 Comments: Citalopram Hydrobromide (Citalopram HBr) 20 MG TABLET 1.5 Tablet ORAL DAILY Qty = 45 Comments: Baclofen (Baclofen) 10 MG TABLET 1 Tablet ORAL THREE TIMES DAILY as needed for CRAMPING Qty = 90 Tramadol HCl (Tramadol HCl) 50 MG TABLET 1 Tablet ORAL TWICE DAILY Qty = 60 Comments: Diphenoxylate HCl/Atropine (Lomotil 2.5-0.025 MG Tablet) 2.5 MG-0.025 MG TABLET 1 Tablet ORAL TAKE AT BEDTIME Qty = 30 Insulin Aspart, Recombinant (Novolog Flexpen) 100 UNIT/ML INSULN.PEN 10 Units Inject into fatty tissue 3 TIMES DAILY BEFORE MEALS Insulin Glargine,Hum.rec.anlog (Lantus Solostar) 100 UNIT/ML (3 ML) INSULN.PEN 13 Unit Inject into fatty tissue Every night Ergocalciferol (Vitamin D2) (Vitamin D2) 50,000 UNIT CAPSULE 1 Capsule ORAL Once a Week Qty = 4 Copies To: Emily Holly APRN; Margarita FREDERICK,Sergio Luna Attending MD Review Statement Documenting Attending: Sosa Ruby MD Other Findings: Patient is medically stable to be discharged home today.
--- NOTE | 2018-01-08 11:48 | Patient Discharge Instructions ---
Discharge Instructions General Discharge Information You were seen/treated for: Altered mental status Weakness, MS exacerbation Shoulder pain Watch for these problems: Severe weakness, confusion, dizziness, abdominal pain, change in stool color or worsening of any other symptoms Special Instructions: Please follow with your PCP within one week of discharge. Please follow with your neurologist tomorrow as instructed. Please follow with the orthopedic surgeon as instructed for your shoulder pain. Diet Continue normal diet: No Recommended Diet: Diabetic Activity Full Activity/No Limits: No Activity Self Limited: Yes Acute Coronary Syndrome Inclusion Criteria At DC or during hospital stay patient has or had the following: ACS DIAGNOSIS No Discharge Core Measures Meds if any: Prescribed or Continued at Discharge Meds if any: NOT Prescribed or Continued at Discharge Congestive Heart Failure Inclusion Criteria At DC or during hospital stay patient has or had the following: CHF DIAGNOSIS No Discharge Core Measures Meds if any: Prescribed or Continued at Discharge Meds if any: NOT Prescribed or Continued at Discharge Cerebrovascular accident Inclusion Criteria At DC or during hospital stay patient has or had the following: CVA/TIA Diagnosis No Discharge Core Measures Meds if any: Prescribed or Continued at Discharge Meds if any: NOT Prescribed or Continued at Discharge Venous thromboembolism Inclusion Criteria VTE Diagnosis No VTE Type NONE VTE Confirmed by (Test) NONE Discharge Core Measures - Per Current guidelines, there needs to be overlap - treatment for the first 5 days of Warfarin therapy. - If discharged on Warfarin prior to 5 days of - overlap therapy, the patient will need to be - assessed for post discharge needs including - *Post discharge parental anticoagulation - *Warfarin and/or parental anticoagulation education - *Follow up date to check INR post discharge At least 5 days overlap therapy as Inpatient No Meds if any: Prescribed or Continued at Discharge Note: Overlap Therapy is Warfarin and Anticoagulant Meds if any: NOT Prescribed or Continued at Discharge
[2018-01-08 14:28] VITALS: BP 140/70
== END 2018-01-08 16:30 | DRG 58 ==
LOC: ERH 21:52 → 2NA 23:38 → ERHI 23:38 → ENRESERV 01-06 00:46 → 2NA 01-06 01:42 → ENPENDDIS 01-08 13:23 → 2NA 01-08 16:30
PROVIDERS: Internal Medicine Hematology & Oncology; Physician Assistant Medical
DX: G35 Multiple sclerosis (principal); G92 Toxic encephalopathy; E11.65 Type 2 diabetes mellitus with hyperglycemia; E11.42 Type 2 diabetes mellitus with diabetic polyneuropathy; E87.1 Hypo-osmolality and hyponatremia; E83.42 Hypomagnesemia; Z79.4 Long term (current) use of insulin; Z79.84 Long term (current) use of oral hypoglycemic drugs; M62.81 Muscle weakness (generalized); R26.2 Difficulty in walking, not elsewhere classified; T40.7X5A Adverse effect of cannabis (derivatives), initial encounter; R41.82 Altered mental status, unspecified; Z91.14 Patient's other noncompliance with medication regimen; I10 Essential (primary) hypertension; E78.5 Hyperlipidemia, unspecified; F32.9 Major depressive disorder, single episode, unspecified; F41.9 Anxiety disorder, unspecified; F17.210 Nicotine dependence, cigarettes, uncomplicated; F12.10 Cannabis abuse, uncomplicated
CPT/HCPCS: 2NASP; 73221; ERO; 36592; 71045; 73030-LT; 73502-LT; 80307; 81003; 82436; 93005; 93010; 96361; 96365; 96375; 97110-GO; 97116-GO; 97161-GP; 97530-GO; G0480; J1040; J1650; J1815; J2310; J2765; J7060